=== PATIENT | female | born 1940 | race Caucasian/White ===

== ENCOUNTER 2022-04-30 10:43 | Emergency (ER) | payer MEDICARE, SELFPAY ==
[2022-04-30 10:52] VITALS: BP 198/87; PULSE 80; RESP 16; TEMP 36.6; O2SAT 98; BMI 25.7
--- NOTE | 2022-04-30 10:59 | XRR_ITS ---
PROCEDURE INFORMATION: Exam: XR Chest Exam date and time: 04/30/2022 11:18 AM Age: 82 years old Clinical indication: Cough and dyspnea; Patient HX: Chest pain, passed out; Additional info: Dyspnea/cough TECHNIQUE: Imaging protocol: Radiologic exam of the chest. Views: 1 view. COMPARISON: CT neck w con* [id number] 08/25/2015 9:18 AM FINDINGS: Lungs: Prior pulmonary granulomatous disease. No pulmonary vascular congestion, pulmonary edema or pneumonia. Pleural spaces: No pleural effusion or pneumothorax. Heart/Mediastinum: The cardiac silhouette is not enlarged. The mediastinal contours are normal. Calcified mediastinal and hilar lymph nodes from prior pulmonary granulomatous disease. Bones/joints: No acute osseous abnormality. Soft tissues: Bilateral epicardial fat pads. XR/XR chest 1V portable [id number] IMPRESSION: No acute finding.
--- NOTE | 2022-04-30 11:06 | ECG_ITS ---
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 Measurements Intervals [place] Rate: 69 P: 64 AR: 183 QRS: -3 QRSD: 95 T: 22 QT: 418 QTc: 449 Interpretive Statements SINUS RHYTHM WITH OCCASIONAL SUPRAVENTRICULAR PREMATURE COMPLEXES INCOMPLETE RIGHT BUNDLE BRANCH BLOCK [90+ ms QRS DURATION, TERMINAL R IN V1/V2, 40+ ms S IN I/aVL/V4/V5/V6] MODERATE ST DEPRESSION [0.05+ mV ST DEPRESSION] No previous ECG available for comparison Electronically Signed On 05-01-2022 8:27:13 CDT by Tobi Manrique M.D. [id number]
[2022-04-30 11:18] LABS: Basophils % 0.4 %; Eosinophils # 0.2 10^3/uL (0.0-0.8); Eosinophils % 4.2 %; Hematocrit 35.5 % (37.0-47.0); Hemoglobin 12.6 g/dL (11.5-15.3); Lymphocytes % 44.5 %; Mean Corpuscular HGB Conc 35.5 g/dL (30.0-36.0); Mean Corpuscular Hemoglobin 32.5 pg (28.0-34.0); Mean Corpuscular Volume 91.5 fl (81-99); Monocytes # 0.5 10^3/uL (0.2-0.9); Monocytes % 11.1 %; Neutrophils # 1.77 10^3/uL (1.8-7.7); Neutrophils % 39.6 %; Nucleated Red Blood Cells % 0 %; Platelet Count 202 10^3/cmm (130-400); Red Blood Count 3.88 10^6/uL (4.1-5.3); Red Cell Distribution Width 12.2 % (12.1-15.1); White Blood Count 4.5 10^3/uL (4.0-10.0)
--- NOTE | 2022-04-30 11:22 | CT_ITS ---
WS: [id number] CT HEAD NONCONTRAST HISTORY: syncope/LOC TECHNIQUE: Contiguous axial imaging performed through the brain in 2.5 mm imaging. Bone and soft tiss ue windows. Sagittal and coronal reformats reviewed. All CT scans at [facility] use at least one of these dose optimization techniques: automated exposure control; mA and/or kV adjustment per pa tient size (includes targeted exams where dose is matched to clinical indication); or iterative recon struction. DLP: 1082.72 mGy.cm COMPARISON: None available. No acute intracranial hemorrhage, midline shift or mass effect. Moderate atrophy and small vessel ischemic changes. Small lacunar infarcts in the external capsules. Ventricles: Normal size with no hydrocephalus. No inferior displacement of cerebellar tonsils. Paranasal sinuses: Mucoperiosteal thickening in the ethmoid air cells. No air-fluid levels. Mastoid air cells: Well pneumatized. Calvarium and scalp: Skull is intact with no soft tissue edema or swelling. Moderate calcification through the intracranial carotid arteries. Distal vertebral artery calcificati ons. CT/CT head wo con* [id number] IMPRESSION: 1. No acute cranial hemorrhage or midline shift. 2. 

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
[2022-04-30 11:38] LABS: Troponin(5th) Baseline 11 ng/L (0-10)
[2022-04-30 11:40] LABS: Alanine Aminotransferase 11 U/L (0-33); Albumin Level 4.2 g/dL (3.5-5.2); Alkaline Phosphatase 66 U/L (35-105); Anion Gap 15.4 (5-19); Aspartate Amino Transferase 17 U/L (0-32); Blood Urea Nitrogen 15 mg/dL (8-23); Calcium 9.4 mg/dL (8.5-10.5); Carbon Dioxide 27 mmol/L (22-29); Chloride 95 mmol/L (98-107); Globulin 3.1 g/dL (1.3-4.6); Glucose 105 mg/dL (65-115); Osmolality Calculated 279 mOsm/kg (285-295); Potassium 3.4 mmol/L (3.5-5.1); Sodium 134 mmol/L (136-145); Total Bilirubin 0.3 mg/dL (0.15-1.2); Total Protein 7.3 g/dL (6.6-8.7)
[2022-04-30] MEDS: lisinopril 20 mg Tablet PO (12:00)
[2022-04-30] MEDS: hydroCHLOROthiazide 25 mg Tablet PO (12:00)
[2022-04-30] MEDS: amlodipine 10 mg Tablet PO (12:00)
[2022-04-30 12:06] VITALS: BP 192/111
--- NOTE | 2022-04-30 12:59 | ECG_ITS ---
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 Measurements Intervals [place] Rate: 62 P: 71 [place]: 192 QRS: 17 QRSD: 102 T: 31 QT: 412 QTc: 422 Interpretive Statements SINUS RHYTHM INCOMPLETE RIGHT BUNDLE BRANCH BLOCK [90+ ms QRS DURATION, TERMINAL R IN V1/V2, 40+ ms S IN I/aVL/V4/V5/V6] NONSPECIFIC ST & T-WAVE ABNORMALITY Compared to ECG 04/30/2022 11:06:39 T-wave abnormality now present ST (T wave) deviation no longer present Electronically Signed On 05-01-2022 8:21:22 CDT by Tobi Manrique M.D. [id number]
[2022-04-30 13:39] VITALS: BP 180/100; PULSE 64; RESP 16; O2SAT 93
[2022-04-30 14:00] LABS: Troponin 5 2HR 10.93 ng/L (0-10)
[2022-04-30 14:03] LABS: Troponin 5 2HR Delta -0.07 ABS# (0-10)
[2022-04-30 14:15] LABS: Add Urine Culture? No; Add Urine Microscopic? YES; Bacteria Urine 1+ /hpf; Bilirubin Urine Neg (Negative); Blood Urine 2+ (Negative); Glucose Urine UA Norm (Normal); Ketones Urine Negative (Negative); Leukocyte Esterase Urine Negative (Negative); Nitrate Urine Negative (Negative); Protein Urine Neg (Negative); RBC Urine 0-4 /hpf (0-2); Specific Gravity, Urine 1.005 (1.005-1.030); Squamous Epithelial Cell Urine 0-4 /hpf (0-5); Urine Appearance Clear (CLEAR); Urine Color Yellow (Yellow); Urobilinogen Urine Norm (Negative); WBC Urine 0-4 /hpf (0-5); pH Urine 7 (5-7)
--- NOTE | 2022-05-01 11:15 | DCPLANNER ---
Addendum entered by Amelia Hugo 08/09/22 14:46: Patient had a follow up appointment scheduled for an outpatient echo - patient did attend appointment Addendum entered by Amelia Hugo 07/30/22 13:58: Patient has an echo scheduled for Friday, August 05, 2022 at 11:00. Centralized scheduling will call patient with appointment information. Addendum entered by Amelia Hugo 05/09/22 11:46: Patient had a follow up appointment scheduled for 05.09.22 with [facility] - patient did attend appointment. Addendum entered by Amelia Hugo 05/01/22 11:20: internet cafe manager also sent patients information to the front office staff at [facility]. Patients information will be printed and reviewed, clinic will call patient with appointment information. Original Note: internet cafe manager had message to schedule an outpatient echocardiogram and a 48 hour halter monitor for patient. internet cafe manager spoke with patients , who stated that patient wanted to have the tests ordered and that patients primary care physician is Ramila Ahumada [place] [facility] internet cafe manager faxed signed order to centralized scheduling for the echocardiogram, centralized scheduling will call patient with appointment information. internet cafe manager faxed signed order to [facility] for the halter monitor, [facility] will call patient with appointment information. internet cafe manager also faxed notification to patients primary care physician that the ER physician ordered some outpatient testing for patient.
== END 2022-04-30 14:38 | disposition home or self-care (01) ==
PROVIDERS: Emergency Provider Family Medicine; PCP Physician Assistant
DX: R55 Syncope and collapse (principal); I10 Essential (primary) hypertension; Z79.02 Long term (current) use of antithrombotics/antiplatelets; Z79.82 Long term (current) use of aspirin
CPT/HCPCS: 36415; 70450; 71045; 80053; 81001; 84484; 85025; 93005; 99285

== ENCOUNTER → 2022-05-09 10:46 | Outpatient (BNVA) | payer MEDICARE, SELFPAY | PROVIDERS: PCP Physician Assistant; Visit Provider Internal Medicine Cardiovascular Disease | DX: R55 Syncope and collapse (principal) | CPT/HCPCS: 93225 ==

== ENCOUNTER 2022-08-05 10:51 | Outpatient (CLI) | payer MEDICARE, SELFPAY ==
--- NOTE | 2022-08-05 11:14 | USCV_ITS ---
Geeta Hudson Age: 82 Gender: F : 1940 Exam Date: 08/05/2022 11:32 Ordering Phys: Graham Cruz DO Technologist: Steven Mcbride Exam Location: [facility] [place] Indication: syncope BP: 120 / 60 HR: 60 Rhythm: Sinus Technical Quality: Adequate MEASUREMENTS (Male / Female) Normal Values 2D ECHO LV Diastolic Diameter PLAX 3.6 cm 4.2 - 5.9 / 3.9 - 5.3 cm LV Systolic Diameter PLAX 2.0 cm IVS Diastolic Thickness 0.7 cm 0.6 - 1.0 / 0.6 - 0.9 cm IVS Systolic Thickness 0.9 cm LVPW Diastolic Thickness 1.2 cm 0.6 - 1.0 / 0.6 - 0.9 cm LVPW Systolic Thickness 1.7 cm LVOT Diameter 2.0 cm LV Ejection Fraction 2D Teich 76.0 % LV Ejection Fraction MOD 2C 76.8 % LV Ejection Fraction 2C AL 76.2 % LA Diameter 3.2 cm LA Width 3.4 cm LA Height 4.3 cm RA Width 3.2 cm RA Height 5.3 cm Aorta at Sinotubular Diameter 2.1 cm IVC Diameter 1.9 cm M-MODE Aortic Annulus Diameter 2.2 cm LA Ao Ratio MM 1.5 MV E Point Septal Separation 0.4 cm DOPPLER AV Peak Velocity 146.8 cm/s LVOT Peak Velocity 101.0 cm/s AV Area Cont Eq vti 2.2 cm squared AV Area Cont Eq pk 2.2 cm squared MV Peak Velocity 86.0 cm/s MV Area PHT 4.9 cm squared Mitral E to A Ratio 0.8 MV E' Velocity 35.0 cm/s Mitral E to MV E' Ratio 6.4 Mitral E to LV E' Lateral Ratio 6.7 Mitral E to LV E' Septal Ratio 6.1 TR Peak Velocity 241.8 cm/s TR Peak Gradient 23.4 mmHg TR Mean Velocity 188.1 cm/s TR Mean Gradient 14.8 mmHg TR Velocity Time Integral 76.4 cm Right Atrial Pressure 3.0 mmHg Pulmonary Artery Systolic Pressu 26.4 mmHg PV Peak Velocity 77.0 cm/s RV Acceleration Time 0.1 s RV Ejection Time 0.3 s RV AcT/ET 0.3 FINDINGS Left Ventricle Left ventricle is normal in size. LV systolic function is normal with EF of 55 to 60%. No regional wall motion abnormalities are seen. Grade 1 diastolic dysfunction Right Ventricle Normal in size and function Right Atrium Normal in size Left Atrium Normal in size Mitral Valve Structurally normal mitral valve. Trace mitral regurgitation Aortic Valve Aortic valve is thickened. No significant stenosis. Trace tricuspid regurgitation seen Tricuspid Valve Mild tricuspid regurgitation. RVSP is normal Pulmonic Valve Not well visualized. Trace pulmonic regurgitation Pericardium Normal Aorta Normal in size IVC Appears to be normal CONCLUSIONS LV systolic function is normal with EF of 55-60% Grade 1 diastolic dysfunction Trace mitral regurgitation Mild tricuspid regurgitation. Trace pulmonic regurgitation Compared to prior echocardiogram from 2016, no significant changes are seen Tobi Manrique MD (Electronically Signed) Final Date: 05 August 2022 17:43 S
== END 2022-08-05 10:52 | disposition home or self-care (01) ==
PROVIDERS: PCP Physician Assistant; Visit Provider Family Medicine
DX: R55 Syncope and collapse (principal)
CPT/HCPCS: 93306

== ENCOUNTER 2022-10-25 14:45 | Outpatient (CLI) | payer MEDICARE, SELFPAY ==
--- NOTE | 2022-10-25 14:52 | MR_ITS ---
WS: [id number] MRI LUMBAR SPINE NONCONTRAST TECHNIQUE: Sagittal T1, T2 and STIR imaging. Axial T1 and T2 imaging. CLINICAL INFORMATION: NEUROGENIC CLAUDICATION COMPARISON: None. FINDINGS: Mild lumbar curve. No acute compression. Grade 1 anterolisthesis L4 on L5 measuring 9 mm. L1-L2: No significant disc bulging. Moderate facet arthropathy. Spinal canal and foramen are patent. L2-L3: Mild annular bulging. Moderate facet arthropathy. Mild narrowing subarticular recess bilateral ly. Mild bilateral foraminal narrowing. L3-L4: Mild annular bulging. Mild to moderate central canal stenosis. Impingement traversing L4 nerve roots bilaterally. Moderate facet arthropathy. Small bilateral foraminal protrusions with mild to mo derate bilateral foraminal narrowing. L4-L5: Grade 1 anterolisthesis. Disc bulging combination with facet arthropathy and ligamentum flavum hypertrophy results in severe central canal stenosis. Impingement traversing L5 nerve roots bilatera lly. Small facet effusions. Moderate RIGHT and mild LEFT foraminal narrowing. L5-S1: Mild annular bulging with slight contact of the S1 nerve roots LEFT greater than RIGHT. Modera te LEFT foraminal narrowing impinges the exiting LEFT L5 nerve root. Visualized pelvic bony structures: Normal. Paravertebral soft tissues: Normal. Partially visualized adrenal glands are normal. Small RIGHT renal cyst. MR/MR lumbar spine wo con* [id number] IMPRESSION: 1. Grade 1 anterolisthesis L4 on L5 with a central canal stenosis. Impingement traversing L5 nerve roots. Recommend spine surgery consultation. 2. Mild to moderate central canal stenosis L3-L4 mild central canal stenosis L 2-L3. 3. Shallow central protrusion L5-S1 with slight impingement traversing LEFT gr eater than RIGHT S1 nerve roots. 4. Moderate LEFT L5-S1 foraminal narrowing. 5. Small bilateral foraminal protrusions L3-L4 with mild to moderate bilateral foraminal narrowing. 6. Moderate RIGHT L4-L5 foraminal narrowing.
== END 2022-10-25 14:46 | disposition home or self-care (01) ==
LOC: RAD 14:47
PROVIDERS: PCP Physician Assistant; Visit Provider Physician Assistant
DX: M48.062 Spinal stenosis, lumbar region with neurogenic claudication (principal); M47.816 Spondylosis without myelopathy or radiculopathy, lumbar region
CPT/HCPCS: 72148

== ENCOUNTER 2023-03-22 12:18 | Observation (INO) | payer MEDICARE, SELFPAY ==
[2023-03-22 12:20] VITALS: BP 101/56; PULSE 62; RESP 16; TEMP 36.8; O2SAT 93
--- NOTE | 2023-03-22 12:54 | XRR_ITS ---
PROCEDURE INFORMATION: Exam: XR Chest Exam date and time: 03/22/2023 12:58 PM Age: 82 years old Clinical indication: Pain; Dyspnea/cough TECHNIQUE: Imaging protocol: Radiologic exam of the chest. Views: 1 view. COMPARISON: CR XR chest 1V portable [id number] 04/30/2022 11:18 AM FINDINGS: Lungs: Prior pulmonary granulomatous disease. No pulmonary vascular congestion, pulmonary edema or pneumonia. Pleural spaces: No pleural effusion or pneumothorax. Heart/Mediastinum: The cardiac silhouette is not enlarged. The mediastinal contours are normal. Calcified mediastinal and hilar lymph nodes from prior pulmonary granulomatous disease. Bones/joints: No acute osseous abnormality. Soft tissues: Bilateral epicardial fat pads. XR/XR chest 1V portable [id number] IMPRESSION: No acute finding.
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
[2023-03-22 13:03] LABS: Basophils # 0.1 10^3/uL (0.0-0.1); Basophils % 0.5 %; Eosinophils # 0.1 10^3/uL (0.0-0.8); Eosinophils % 0.7 %; Hematocrit 36.8 % (36-47); Lymphocytes # 1.7 10^3/uL (0.8-4.8); Lymphocytes % 14.2 %; Mean Corpuscular HGB Conc 34.2 g/dL (30-55); Mean Corpuscular Volume 90.6 fl (85-98); Mean Platelet Volume 9.4 fL (7.4-10.4); Monocytes # 1.4 10^3/uL (0.2-0.9); Monocytes % 12.1 %; Neutrophils # 8.46 10^3/uL (1.8-7.7); Neutrophils % 72.1 %; Nucleated Red Blood Cells % 0 %; Platelet Count 317 10^3/cmm (157-399); Red Blood Count 4.06 10^6/uL (3.85-5.65); Red Cell Distribution Width 12.3 % (12.1-15.1); White Blood Count 11.73 10^3/uL (3.29-11.43)
[2023-03-22 13:16] LABS: Alanine Aminotransferase 11 U/L (0-33); Albumin Level 4.3 g/dL (3.5-5.2); Alkaline Phosphatase 71 U/L (35-105); Anion Gap 15.4 (5-19); Aspartate Amino Transferase 17 U/L (0-32); Blood Urea Nitrogen 23 mg/dL (8-23); Calcium 9.3 mg/dL (8.5-10.5); Carbon Dioxide 26 mmol/L (22-29); Chloride 97 mmol/L (98-107); Glucose 144 mg/dL (65-115); Osmolality Calculated 286 mOsm/kg (285-295); Potassium 3.4 mmol/L (3.5-5.1); Sodium 135 mmol/L (136-145); Total Bilirubin 0.5 mg/dL (0.15-1.2); Total Protein 7.3 g/dL (6.6-8.7)
[2023-03-22 13:17] LABS: Troponin(5th) Baseline 17 ng/L (0-10)
--- NOTE | 2023-03-22 13:21 | ECG_ITS ---
[facility] Test Date: 2023-03-22 Pat Name: Geeta Hudson Department: Room: Gender: Female Manager Global: : 1940 Requested By: Graham Murdock Order Number: [id number] Reading MD: Solomon Guerrero Measurements Intervals [place] Rate: 63 P: 67 HI: 210 QRS: 11 QRSD: 114 T: 50 QT: 442 QTc: 455 Interpretive Statements SINUS RHYTHM WITH SINUS ARRHYTHMIA WITH FIRST DEGREE AV BLOCK INCOMPLETE RIGHT BUNDLE BRANCH BLOCK [90+ ms QRS DURATION, TERMINAL R IN V1/V2, 40+ ms S IN I/aVL/V4/V5/V6] NONSPECIFIC ST & T-WAVE ABNORMALITY Compared to ECG 04/30/2022 13:09:54 First degree AV block now present T-wave abnormality still present Electronically Signed On 03-22-2023 15:54:42 CDT by Solomon Guerrero [id number]
[2023-03-22 13:36] VITALS: BP 129/61; RESP 18; O2SAT 95
--- NOTE | 2023-03-22 13:39 | CTR_ITS ---
PROCEDURE INFORMATION: Exam: CT Head Without Contrast Exam date and time: 03/22/2023 2:21 PM Age: 82 years old Clinical indication: Injury or trauma; Fall; Work related; Blunt trauma (contusions or hematomas) TECHNIQUE: Imaging protocol: Computed tomography of the head without contrast. Radiation optimization: All CT scans at this facility use at least one of these dose optimization techniques: automated exposure control; mA and/or kV adjustment per patient size (includes targeted exams where dose is matched to clinical indication); or iterative reconstruction. REPORTING DATA: Count of CT and Cardiac NM exams in prior 12 months: This patient has received [address] and 0 known cardiac nuclear medicine studies in the 12 months prior to the current study. COMPARISON: CT head wo con* [id number] 04/30/2022 11:49 AM RADIATION DOSE METRICS: Total DLP (mGy-cm): 1118.98 FINDINGS: Brain: No acute appearing brain parenchymal abnormality. No intracranial hemorrhage. No extraaxial fluid collections. There is diffuse cerebral atrophy. There are white matter low attenuation changes potentially related to chronic small vessel disease. Cerebral ventricles: No hydrocephalus when allowing for the atrophy. Paranasal sinuses: Mild multifocal paranasal sinus mucoperiosteal thickening. Mastoid air cells: The mastoid air cells are aerated. Bones/joints: No calvarial fracture. Soft tissues: No acute soft tissue abnormality. CT/CT head wo con* [id number] IMPRESSION: No intracranial injury or calvarial fracture.
--- NOTE | 2023-03-22 13:39 | CTR_ITS ---
PROCEDURE INFORMATION: Exam: CT Cervical Spine Without Contrast Exam date and time: 03/22/2023 2:21 PM Age: 82 years old Clinical indication: Injury or trauma; Fall; Blunt trauma TECHNIQUE: Imaging protocol: Computed tomography of the cervical spine without contrast. Radiation optimization: All CT scans at this facility use at least one of these dose optimization techniques: automated exposure control; mA and/or kV adjustment per patient size (includes targeted exams where dose is matched to clinical indication); or iterative reconstruction. REPORTING DATA: Count of CT and Cardiac NM exams in prior 12 months: This patient has received [address] and 0 known cardiac nuclear medicine studies in the 12 months prior to the current study. COMPARISON: CT head wo con* [id number] 04/30/2022 11:49 AM RADIATION DOSE METRICS: Total DLP (mGy-cm): 209.3 FINDINGS: Bones/joints: There is straightening of the cervical spine. This can be due to patient position or muscle spasm. The vertebral bodies maintain height. There is ankylosis of the C3-C4 facet joint on the right. Multilevel facet arthropathy present on the left. The craniocervical junction is normal. The atlantodens interval is not widened. Multilevel disc and uncovertebral joint degeneration in the mid cervical spine. Minimal grade 1 degenerative anterolisthesis at C5-C6. Multilevel bilateral degenerative foraminal stenosis of varying degrees, but generally worse on the left. No acute fracture. Lungs: The lung apices are normal. Soft tissues: No acute soft tissue abnormality. CT/CT cervical spin wo con* [id number] IMPRESSION: 1. No acute osseous abnormality. 2. Multilevel degenerative changes.
[2023-03-22 14:14] LABS: Glucose Urine UA Norm (Normal); Ketones Urine Negative (Negative); Protein Urine Trace (Negative); Urine Appearance Cloudy (CLEAR); Urine Color Yellow (Yellow); pH Urine 5 (5-7)
[2023-03-22 14:15] LABS: Add Urine Culture? Yes; Add Urine Microscopic? YES; Bacteria Urine 3+ /hpf; Bilirubin Urine Neg (Negative); Blood Urine 3+ (Negative); Leukocyte Esterase Urine 2+ (Negative); Nitrate Urine Negative (Negative); Squamous Epithelial Cell Urine RARE /hpf (0-5); Urobilinogen Urine Norm (Negative); WBC Urine TOO NUMEROUS TO CNT /hpf (0-5)
--- NOTE | 2023-03-22 14:24 | USCV_ITS ---
Geeta Hudson Age: 82 Gender: F : 1940 Exam Date: 03/22/2023 15:43 Ordering Phys: Salinas Rasheed MD Technologist: Steven Mcbride Exam Location: [facility] [place] Indication: sob BP: 129 / 61 HR: 74 Rhythm: Sinus Technical Quality: Adequate MEASUREMENTS (Male / Female) Normal Values 2D ECHO LVOT Diameter 2.0 cm LV Ejection Fraction MOD 2C 66.4 % LV Ejection Fraction 2C AL 66.3 % LA Diameter 3.4 cm LA Width 2.7 cm LA Height 5.1 cm RA Width 3.0 cm RA Height 5.2 cm Aorta at Sinotubular Diameter 1.8 cm IVC Diameter 1.4 cm M-MODE Aortic Annulus Diameter 2.4 cm LA Ao Ratio MM 1.6 MV E Point Septal Separation 0.6 cm DOPPLER AV Peak Velocity 149.7 cm/s LVOT Peak Velocity 127.0 cm/s AV Area Cont Eq vti 2.3 cm squared AV Area Cont Eq pk 2.7 cm squared MV Peak Velocity 89.0 cm/s MV Area PHT 4.6 cm squared Mitral E to A Ratio 0.9 MV E' Velocity 34.0 cm/s Mitral E to MV E' Ratio 7.6 Mitral E to LV E' Lateral Ratio 7.8 Mitral E to LV E' Septal Ratio 7.5 TR Peak Velocity 213.1 cm/s TR Peak Gradient 18.2 mmHg TR Mean Velocity 171.8 cm/s TR Mean Gradient 13.0 mmHg TR Velocity Time Integral 53.3 cm Right Atrial Pressure 3.0 mmHg Pulmonary Artery Systolic Pressu 21.2 mmHg PV Peak Velocity 67.3 cm/s RV Acceleration Time 0.1 s RV Ejection Time 0.3 s RV AcT/ET 0.4 FINDINGS Left Ventricle Normal left ventricular size and systolic function, EF 65 %. Right Ventricle Normal right ventricular size and systolic function. Right Atrium Normal right atrial size. Left Atrium Mildly increased left atrial size. Mitral Valve Trace mitral valve regurgitation. Aortic Valve Structurally normal trileaflet aortic valve. Tricuspid Valve Trace tricuspid valve regurgitation. Pulmonic Valve No pulmonary valve regurgitation. Pericardium No pericardial effusion. Aorta Normal aorta. IVC Normal inferior vena cava. CONCLUSIONS Normal left ventricular size and systolic function, EF 65 %. Solomon Guerrero MD (Electronically Signed) Final Date: 23 March 2023 12:42 S
--- NOTE | 2023-03-22 14:24 | USR_ITS ---
PROCEDURE INFORMATION: Exam: US Duplex Bilateral Extracranial Arteries; Complete; Carotid Arteries Exam date and time: 03/22/2023 3:16 PM Age: 82 years old Clinical indication: Altered mental status/memory loss; Additional info: AMS TECHNIQUE: Imaging protocol: Real-time duplex ultrasound scan of the bilateral extracranial arteries combining correa scale, color Doppler and spectral waveform analysis with image documentation. Complete exam. Exam focused on the carotid arteries. COMPARISON: CT cervical spin wo con* [id number] 03/22/2023 2:21 PM FINDINGS: Right common carotid artery: Unremarkable. No occlusion or stenosis. Waveforms are normal. Right internal carotid artery: Unremarkable. No occlusion or stenosis. Waveforms are normal. Proximal 36.7 cm/s, mid 72 cm/s, distal 61 cm/s Right ICA/CCA ratio: 0.81. Right external carotid artery: No stenosis in the origin. Right vertebral artery: Unremarkable. Antegrade flow. Left common carotid artery: Unremarkable. No occlusion or stenosis. Waveforms are normal. Left internal carotid artery: Unremarkable. No occlusion or stenosis. Waveforms are normal. Proximal 63 cm/s, mid 68 cm/s, distal 75 cm/s. Left ICA/CCA ratio: 0.88 Left external carotid artery: No stenosis in the origin. Left vertebral artery: Unremarkable. Antegrade flow. US/CV carotid duplex BI* [id number] IMPRESSION: No carotid arterial stenosis. REFERENCES: SRU CRITERIA. The degree of internal carotid artery stenosis is based on criteria defined by the Society of Radiologists in Ultrasound (SRU). Normal is no stenosis. Mild is less than 50% stenosis. Moderate is 50-69% stenosis. Severe is greater than 69% stenosis to near occlusion. Near occlusion is a markedly narrowed lumen. Total occlusion is no detectable patent lumen.
--- NOTE | 2023-03-22 15:14 | CTR_ITS ---
PROCEDURE INFORMATION: Exam: CTA Chest With Contrast Exam date and time: 03/22/2023 4:20 PM Age: 82 years old Clinical indication: Other: Syncope TECHNIQUE: Imaging protocol: Computed tomographic angiography of the chest with contrast. Exam focused on the arteries. 3D rendering (Not supervised by radiologist): MIP and/or 3D reconstructed images were created by the technologist. Radiation optimization: All CT scans at this facility use at least one of these dose optimization techniques: automated exposure control; mA and/or kV adjustment per patient size (includes targeted exams where dose is matched to clinical indication); or iterative reconstruction. Contrast material: OMNI 350; Contrast volume: 67 ml; Contrast route: INTRAVENOUS (IV); REPORTING DATA: Count of CT and Cardiac NM exams in prior 12 months: This patient has received [address] and 0 known cardiac nuclear medicine studies in the 12 months prior to the current study. COMPARISON: CR (CHEST, ) 03/22/2023 12:58 PM RADIATION DOSE METRICS: Total DLP (mGy-cm): 232.29 FINDINGS: Pulmonary arteries: Normal. No pulmonary emboli. Aorta: Unremarkable. No aortic aneurysm. No aortic dissection. Lungs: A few scattered calcified granulomas are present in both lungs. No consolidation. No masses. Pleural spaces: Unremarkable. No pneumothorax. No pleural effusion. Heart: Heavy coronary artery calcifications. Negative for right heart strain. No cardiomegaly. No pericardial effusion. Lymph nodes: Unremarkable. No enlarged lymph nodes. Bones/joints: Unremarkable. No acute fracture. Soft tissues: Unremarkable. CT/CT angio chest PE protcl [id number] IMPRESSION: 1. Negative for pulmonary embolism. 2. Negative for right heart strain. 3. Heavy coronary artery calcifications 4. A few scattered calcified granulomas in both lungs
--- NOTE | 2023-03-22 15:16 | P.HP_ITS ---
Providers/Chief Complaint Primary Care Provider: Ramila Ahumada Chief Complaint: SYNCOPE History of Present Illness Geeta Hudson is a 82 year old female Review of Systems Const: Denies: fever(s) or chills Eyes: Denies: change in vision or blurry vision ENMT: Denies: throat pain Card: Reports: chest pain, lightheadedness and syncope; Denies: palpitations or dyspnea on exertion Resp: Denies: dyspnea or non-productive cough GI: Denies: abdominal pain, nausea or vomiting : Denies: flank pain or difficulty voiding Musc: Reports: back pain; Denies: neck pain Skin/Breast: Denies: rash or pruritus Neuro: Denies: headache(s), numbness in extremities or weakness in extremities Psych: Denies: anxiety Endo: Denies: polyuria Fadi/Lymph: Denies: easy bruising or easy bleeding Medications/Allergies Home Medications Medication Instructions Recorded Confirmed Last Taken Type amlodipine 10 mg tablet 10 mg PO DAILY #30 tabs 04/30/22 03/22/23 03/22/23 Rx clopidogrel 75 mg tablet 75 mg PO DAILY 04/30/22 03/22/23 03/22/23 History labetalol 200 mg tablet 200 mg PO BID 04/30/22 03/22/23 03/22/23 History quinapril 20 1 tab PO DAILY 04/30/22 03/22/23 03/22/23 History mg-hydrochlorothiazide 12.5 mg tablet acetaminophen 325 mg capsule 650 mg PO QID PRN Pain 03/22/23 03/22/23 03/22/23 History (Tylenol) loratadine 10 mg capsule 10 mg PO DAILY PRN Allergy Symptoms 03/22/23 03/22/23 03/21/23 History vitamin B12 0.5 mg-folic acid 1 mg 1 tab PO DAILY 03/22/23 03/22/23 03/22/23 History tablet Allergies Allergy/AdvReac Type Severity Reaction Status Date / Time No Known Allergies Allergy Verified 03/22/23 12:27 PFSH Acute PFSH: Medical History (Updated 03/22/23 @ 15:24 by Salinas Rasheed MD) History of CVA (cerebrovascular accident) Hypertension Surgical History History of back surgery Family History (Updated 03/22/23 @ 15:19 by Salinas Rasheed MD) Father Stroke Social History (Updated 03/22/23 @ 15:19 by Salinas Rasheed MD) Smoking and tobacco status: never smoked Alcohol intake: never Substance/Drug Use: never Vitals/I&O/Wt Last Vital Signs Temp 98.2 F 03/22/23 12:20 Pulse 62 03/22/23 12:20 Resp 18 03/22/23 13:36 BP 129/61 03/22/23 13:36 Pulse Ox 95 03/22/23 13:36 O2 Del Method Room Air 03/22/23 13:36 Weight last 48 hrs Weight 63.503 kg Physical Exam Const: COMMON NORMALS: no acute distress and patient oriented x3 GENERAL APPEARANCE: cooperative HENMT: COMMON NORMALS: normocephalic and Normal external nose present HEAD & SCALP: normocephalic FACE & SINUS: normal facial exam NOSE: Normal external nose present Eye: COMMON NORMALS: Equal, round and reactive pupils present, EOMs intact bilaterally, conjunctivae normal and no scleral icterus CONJUNCTIVA: Yes conjunctivae normal PUPIL: Yes Equal, round and reactive pupils present Neck/C-Spine: COMMON NORMALS: full ROM, no lymphadenopathy, no JVD, Thyroid normal and No carotid bruits THYROID: Thyroid normal Lymph: LYMPHATIC: no lymphadenopathy noted Chest: COMMONS NORMALS: normal inspection of the chest Resp: COMMON NORMALS: normal respiratory effort, No retractions, No use of ac cessory muscles and clear to auscultation bilaterally AUSCULTATION: clear to auscultation bilaterally Cardio: COMMON NORMALS: regular rate, regular rhythm, S1 normal heart sound present, S2 normal heart sound present, No murmurs present (Cardio) and Peripheral pulses 2+ throughout RATE: regular rate RHYTHM: regular rhythm HEART SOUNDS: S1 normal heart sound present and S2 normal heart sound present PERIPHERAL PULSES: Peripheral pulses 2+ throughout GI: COMMON NORMALS: Normal to inspection, nondistended, normoactive bowel sounds present, Soft to palpation and non-tender : BLADDER/KIDNEY EXAM: Yes no CVA tenderness Back/Pelvis: COMMON NORMALS: no CVA tenderness Extremity: COMMON NORMALS: normal to inspection and full ROM Neuro: COMMON NORMALS: patient oriented x3, CN's II-XII intact bilaterally, moves all extremities, no focal motor deficits and no sensory deficits noted MENINGEAL SIGNS: Yes no meningeal signs Psych: COMMON NORMALS: mental status grossly normal, Normal thought process present, cooperative and speech normal APPEARANCE: Yes well kempt Skin: COMMON NORMALS: turgor normal and no jaundice GENERAL SKIN EXAM: turgor normal Data 03/22/23 11:57 03/22/23 11:57 Micro: Microbiology 03/22/23 14:55 Blood Culture - Preliminary Blood SPECIMEN COLLECTED 03/22/23 14:55 Blood Culture - Preliminary Blood SPECIMEN COLLECTED A&P Assessment and plan (1) Syncope: (2) Atypical chest pain: (3) RAOUL (acute kidney injury): (4) Cystitis: Plan Syncope -neuro check, aspiration precaution, nih strokescale -orthostatic vitals -cardiac echo -carotid artery ultrasound -ct head -she has had back surgery, now with atpical chest pain, will order ctangio of chest Atypical chest pain -serial ekg, serial troponin, telemetry monitoring -coutinue plavix UTI -countinue rocephin HTN -hold labetalol RAOUL -IVF normal saline at 100cc/hr Attestations Medical Necessity Statement*: patient requires hospitalization for syncope and chest pain, outpatient with observation Diagnoses Syncope R55 Atypical chest pain R07.89 RAOUL (acute kidney injury) N17.9 Cystitis N30.90
[2023-03-22 15:22] LABS: Lactic Sepsis W/Reflex 1.2 mmol/L (0.5-2.2)
[2023-03-22 15:27] LABS: Chol HDL Ratio 4.34 mg/dL (0.0-4.40); Cholesterol 252 mg/dL (0-200); HDL Cholesterol 58 mg/dL (60-100); LDL Cholesterol Calculated 168 mg/dL (50-129); Thyroid Stimulating Hormone 2.27 uIU/mL (0.27-4.20); Triglycerides 130 mg/dL (0-150)
[2023-03-22 15:28] LABS: NT Pro B Type Natriuretic Pept 699 pg/mL (0-450); Procalcitonin 0.22 ng/mL (0-0.5)
[2023-03-22 15:29] LABS: Estmated Average Glucose 117; Hemoglobin A1C 5.7 % (4.0-6.0)
[2023-03-22] MEDS: cefTRIAXone 1,000 MG in sodium chloride 0.9% (plus) 50 ML 100 MG IV (15:37)
[2023-03-22 15:39] LABS: Magnesium 1.8 mg/dL (1.7-2.3); Phosphorus 3.8 mg/dL (2.5-4.5)
[2023-03-22 15:49] VITALS: BP 130/66; O2SAT 94
[2023-03-22] MEDS: iohexol 350 mg/mL 500 mL Btl (per mL) IV (16:27)
[2023-03-22 17:17] LABS: Erythrocyte Sedimentation Rate 13 mm/hr (0-15)
[2023-03-22 17:39] LABS: C Reactive Protein 74.1 mg/L (0.0-4.9)
[2023-03-22] MEDS: sodium chloride 0.9% 1,000 ML 100 ML IV (18:05)
[2023-03-22] MEDS: enoxaparin 40 mg/0.4 mL Syringe SUBCUT (18:05)
[2023-03-22] MEDS: pantoprazole 40 mg SDV IVP (18:30)
--- NOTE | 2023-03-22 18:54 | ECG_ITS ---
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 Measurements Intervals [place] Rate: 87 P: -19 AK: 196 QRS: 65 QRSD: 91 T: 0 QT: 372 QTc: 448 Interpretive Statements SINUS RHYTHM INCOMPLETE RIGHT BUNDLE BRANCH BLOCK [90+ ms QRS DURATION, TERMINAL R IN V1/V2, 40+ ms S IN I/aVL/V4/V5/V6] MODERATE ST DEPRESSION [0.05+ mV ST DEPRESSION] Compared to ECG 03/22/2023 13:21:29 ST (T wave) deviation now present Sinus arrhythmia no longer present First degree AV block no longer present T-wave abnormality no longer present Electronically Signed On 03-23-2023 9:31:06 CDT by Tobi Manrique M.D. [id number]
[2023-03-22 19:10] LABS: Troponin 5 6HR 12.54 ng/L (0-10); Troponin 5 6HR Delta -4.46 ng/L (0-12)
[2023-03-22 20:46] VITALS: BP 151/78; PULSE 102; RESP 20; TEMP 38.2; O2SAT 90
[2023-03-22 23:36] VITALS: PULSE 99
[2023-03-23] VITALS (10 sets, daily range): BP systolic 119–143; BP diastolic 63–79; PULSE 71–97; RESP 16–17; TEMP 36.6–38.2; O2SAT 91–94
[2023-03-23] MEDS: sodium chloride 0.9% 1,000 ML 100 ML IV ×3 (03:35→22:30)
--- NOTE | 2023-03-23 08:53 | USR_ITS ---
PROCEDURE INFORMATION: Exam: US Retroperitoneal; Complete; Kidneys and Bladder Exam date and time: 03/23/2023 3:19 PM Age: 82 years old Clinical indication: Condition or disease; Kidney or ureter condition; Other: Irvin TECHNIQUE: Imaging protocol: Real-time ultrasound of the retroperitoneum with image documentation. Complete exam focused on the kidneys and bladder. COMPARISON: CT angio chest PE protcl [id number] 03/22/2023 4:20 PM FINDINGS: Right kidney: Normal. No stones. No hydronephrosis. Left kidney: Normal. No stones. No hydronephrosis. Urinary bladder: Small amount of layering nonspecific debris in the urinary bladder. US/US renal BI* [id number] IMPRESSION: 1. Negative for hydronephrosis or renal calculus. 2. Small amount of layering nonspecific debris in the urinary bladder.
[2023-03-23] MEDS: hydroCHLOROthiazide 25 mg Tablet 12.5 MG PO (09:45)
[2023-03-23] MEDS: amlodipine 10 mg Tablet PO (09:46)
[2023-03-23] MEDS: lisinopril 20 mg Tablet PO (09:46)
[2023-03-23] MEDS: clopidogrel 75 mg Tablet PO (09:46)
--- NOTE | 2023-03-23 09:58 | PC.NURSE ---
Per Dr. Rasheed at 09:58 due to the patient's fever of 100.8 he would like to start Rochephin for the UTI now instead of at 14:30.
[2023-03-23 10:28] LABS: Basophils # 0.1 10^3/uL (0.0-0.1); Basophils % 0.3 %; Eosinophils % 0.1 %; Hematocrit 34.5 % (36-47); Lymphocytes # 2.1 10^3/uL (0.8-4.8); Lymphocytes % 13.3 %; Mean Corpuscular HGB Conc 34.8 g/dL (30-55); Mean Corpuscular Hemoglobin 31.3 pg (27-33); Mean Corpuscular Volume 89.8 fl (85-98); Mean Platelet Volume 9.5 fL (7.4-10.4); Monocytes # 2.4 10^3/uL (0.2-0.9); Monocytes % 15.2 %; Neutrophils # 11.34 10^3/uL (1.8-7.7); Neutrophils % 70.5 %; Nucleated Red Blood Cells % 0 %; Platelet Count 290 10^3/cmm (157-399); Red Blood Count 3.84 10^6/uL (3.85-5.65); Red Cell Distribution Width 12.4 % (12.1-15.1); White Blood Count 16.08 10^3/uL (3.29-11.43)
[2023-03-23] MEDS: cefTRIAXone 1,000 MG in sodium chloride 0.9% (plus) 50 ML 100 MG IV (10:28)
[2023-03-23 10:54] LABS: Alanine Aminotransferase 9 U/L (0-33); Albumin Level 4.1 g/dL (3.5-5.2); Alkaline Phosphatase 65 U/L (35-105); Anion Gap 14.2 (5-19); Aspartate Amino Transferase 14 U/L (0-32); Blood Urea Nitrogen 17 mg/dL (8-23); Calcium 8.7 mg/dL (8.5-10.5); Carbon Dioxide 27 mmol/L (22-29); Chloride 100 mmol/L (98-107); Creatinine Clr Calc Pharmacy 42.4993; Globulin 2.9 g/dL (1.3-4.6); Glucose 122 mg/dL (65-115); Osmolality Calculated 289 mOsm/kg (285-295); Potassium 3.2 mmol/L (3.5-5.1); Sodium 138 mmol/L (136-145); Total Bilirubin 0.5 mg/dL (0.15-1.2)
[2023-03-23] MEDS: potassium chloride ER 20 mEq Tablet 40 MEQ PO (11:34)
[2023-03-23 12:45] LABS: Adenovirus Not Detected (NOT DETECT); Chlamydia Pneumoniae Not Detected (NOT DETECT); Coronavirus 229E,HKU1,NL63,OC4 Not Detected (NOT DETECT); Human Metapneumovirus Not Detected (NOT DETECT); Human Rhinovirus/Enterovirus Not Detected (NOT DETECT); Influenza A Not Detected (NOT DETECT); Influenza A H1 Not Detected (NOT DETECT); Influenza A H1-2009 Not Detected (NOT DETECT); Influenza A H3 Not Detected (NOT DETECT); Influenza B Not Detected (NOT DETECT); Mycoplasma Pneumoniae Not Detected (NOT DETECT); Parainfluenza Virus Type 1 Not Detected (NOT DETECT); Parainfluenza Virus Type 2 Not Detected (NOT DETECT); Parainfluenza Virus Type 3 Not Detected (NOT DETECT); Parainfluenza Virus Type 4 Not Detected (NOT DETECT); Respiratory Syncytial Virus A Not Detected (NOT DETECT); Respiratory Syncytial Virus B Not Detected (NOT DETECT); SARS-COV-2 Not Detected (NOT DETECT)
--- NOTE | 2023-03-23 12:54 | P.PN_ITS ---
Subjective Subjective: Patient was seen this morning, she had low-grade fevers throughout the night, no nausea, no vomiting, she is sitting up in bed, no lightheadedness episodes, no flank pain, no dysuria, no cough Vitals/I&O/Wt Last Vital Signs Temp 97.8 F 03/23/23 11:48 Pulse 71 03/23/23 11:48 Resp 17 03/23/23 11:48 BP 128/73 03/23/23 11:48 Pulse Ox 94 03/23/23 11:48 O2 Del Method Room Air 03/23/23 03:58 03/22/23 03/23/23 03/23/23 22:59 06:59 14:59 Intake Total 50 / 50 950 / 1000 1213.333 / 1213.333 Balance 50 / 50 950 / 1000 1213.333 / 1213.333 Weight last 48 hrs Weight 63.503 kg Physical Exam Const: COMMON NORMALS: no acute distress and patient oriented x3 Resp: COMMON NORMALS: normal respiratory effort, No retractions, No use of accessory muscles and clear to auscultation bilaterally AUSCULTATION: clear to auscultation bilaterally Cardio: COMMON NORMALS: regular rate, regular rhythm, S1 normal heart sound present and S2 normal heart sound present RATE: regular rate RHYTHM: re gular rhythm HEART SOUNDS: S1 normal heart sound present and S2 normal heart sound present GI: COMMON NORMALS: Normal to inspection, nondistended, normoactive bowel sounds present and non-tender Extremity: COMMON NORMALS: no pedal edema Neuro: COMMON NORMALS: patient oriented x3 Psych: COMMON NORMALS: mental status grossly normal Data 03/23/23 10:19 03/23/23 10:19 Micro: Microbiology 03/22/23 13:30 Urine Culture - Preliminary Urine,Clean Catch Gram Negative Rods 03/22/23 14:55 Blood Culture - Preliminary Blood SPECIMEN COLLECTED 03/22/23 14:55 Blood Culture - Preliminary Blood SPECIMEN COLLECTED A&P Assessment and plan (1) Syncope: (2) Atypical chest pain: (3) RAOUL (acute kidney injury): (4) Cystitis: Plan Syncope -neuro check, aspiration precaution, nih strokescale -orthostatic vitals -cardiac echo CONCLUSIONS ?Normal left ventricular size and systolic function, EF 65 %. -carotid artery ultrasound US/CV carotid duplex BI* [id number] IMPRESSION: No carotid arterial stenosis. -ct head CT/CT head wo con* [id number] IMPRESSION: No intracranial injury or calvarial fracture. -she has had back surgery, now with atpical chest pain, ct angiogran no PE Atypical chest pain -serial ekg, serial troponin, telemetry monitoring -coutinue plavix UTI, elevated CRP, normal Pro-Emiliano -countinue rocephin febrile throughout the night, -fllow urine cultures, blood cultures we will order renal artery ultrasound - HTN -hold labetalol RAOUL -IVF normal saline at 100cc/hr Attestations Medical Necessity Statement*: Patient requires hospitalization due to syncope, UTI, febrile, requiring Rocephin Coding Level of Care Code Acute Code for Chg Fwd Diagnoses Syncope R55 Atypical chest pain R07.89 RAOUL (acute kidney injury) N17.9 Cystitis N30.90
[2023-03-23] MEDS: enoxaparin 40 mg/0.4 mL Syringe SUBCUT (14:40)
[2023-03-23] MEDS: pantoprazole 40 mg SDV IVP (15:09)
[2023-03-23] MEDS: calcium carbonate 500 mg Chew Tablet 1000 MG PO (23:01)
[2023-03-24] VITALS (9 sets, daily range): BP systolic 113–150; BP diastolic 71–79; PULSE 50–105; RESP 16–19; TEMP 36.6–37.2; O2SAT 93–96
[2023-03-24 05:38] LABS: Basophils # 0.1 10^3/uL (0.0-0.1); Basophils % 0.4 %; Eosinophils # 0.1 10^3/uL (0.0-0.8); Eosinophils % 0.9 %; Hematocrit 34.8 % (36-47); Lymphocytes % 17.4 %; Mean Corpuscular HGB Conc 34.2 g/dL (30-55); Mean Corpuscular Hemoglobin 30.7 pg (27-33); Mean Corpuscular Volume 89.9 fl (85-98); Mean Platelet Volume 9.3 fL (7.4-10.4); Monocytes # 1.7 10^3/uL (0.2-0.9); Monocytes % 14.4 %; Neutrophils # 7.79 10^3/uL (1.8-7.7); Neutrophils % 66.6 %; Nucleated Red Blood Cells % 0 %; Platelet Count 260 10^3/cmm (157-399); Red Blood Count 3.87 10^6/uL (3.85-5.65); Red Cell Distribution Width 12.4 % (12.1-15.1); White Blood Count 11.69 10^3/uL (3.29-11.43)
[2023-03-24 05:57] LABS: C Reactive Protein 150.3 mg/L (0.0-4.9)
[2023-03-24 06:12] LABS: Anion Gap 13.9 (5-19); Blood Urea Nitrogen 9 mg/dL (8-23); Calcium 8.7 mg/dL (8.5-10.5); Carbon Dioxide 26 mmol/L (22-29); Chloride 99 mmol/L (98-107); Creatinine Clr Calc Pharmacy 47.8117; Glucose 105 mg/dL (65-115); Osmolality Calculated 281 mOsm/kg (285-295); Sodium 136 mmol/L (136-145)
[2023-03-24 06:23] LABS: Potassium 2.9 mmol/L (3.5-5.1)
[2023-03-24] MEDS: potassium chloride ER 20 mEq Tablet 40 MEQ PO (06:48)
[2023-03-24] MEDS: lidocaine 1% 5 ML in potassium chloride premix 100 ML 26.25 ML IV (06:49)
[2023-03-24 06:50] LABS: Magnesium 1.6 mg/dL (1.7-2.3)
[2023-03-24] MEDS: hydroCHLOROthiazide 25 mg Tablet 12.5 MG PO (08:48)
[2023-03-24] MEDS: amlodipine 10 mg Tablet PO (08:48)
[2023-03-24] MEDS: lisinopril 20 mg Tablet PO (08:48)
[2023-03-24] MEDS: sodium chloride 0.9% 1,000 ML 100 ML IV (08:48)
[2023-03-24] MEDS: clopidogrel 75 mg Tablet PO (08:48)
[2023-03-24] MEDS: cefTRIAXone 1,000 MG in sodium chloride 0.9% (plus) 50 ML 100 MG IV (09:41)
[2023-03-24] MEDS: meropenem 1,000 MG in sodium chloride 0.9% (plus) 50 ML 100 MG IV ×2 (12:39→20:41)
[2023-03-24] MEDS: enoxaparin 40 mg/0.4 mL Syringe SUBCUT (14:31)
[2023-03-24] MEDS: pantoprazole 40 mg SDV IVP (14:33)
--- NOTE | 2023-03-24 15:34 | PM.PN ---
Subjective Subjective: Febrile overnight. Urine cultured not detected to be ESBL E. coli. Antibiotics changed. Patient is clinically feeling better. No further episodes of syncope in the hospital. Medications: Reviewed: Yes Vitals/I&O/Wt Last Vital Signs Temp 98.0 F 03/24/23 11:43 Pulse 93 03/24/23 14:00 Resp 16 03/24/23 11:43 BP 132/71 03/24/23 11:43 Pulse Ox 94 03/24/23 11:43 O2 Del Method Room Air 03/23/23 03:58 O2 Flow Rate 0 03/24/23 08:00 03/24/23 03/24/23 03/24/23 06:59 14:59 22:59 Intake Total 1805 / 1805 Balance 1805 / 1805 Physical Exam Narrative: General: No acute distress, AO x3 HEENT: PERRLA, pupils bilaterally equal and reactive, pallors not present Chest: Normal vesicular breath sounds, no added sounds, equal good air entry bilaterally CVS: S1-S2 regular, no murmurs, no tachycardia, no gallops, no rubs Abdomen: Soft, nontender, no organomegaly, bowel sounds present Neuro: No focal deficits, no facial deformity, AO x3, power 5/5 in all limbs Data 03/24/23 04:23 03/24/23 04:23 Micro: Microbiology 03/22/23 13:30 Urine Culture - Final Urine,Clean Catch Escherichia coli esbl 03/22/23 14:55 Blood Culture - Preliminary Blood NEGATIVE TO DATE 03/22/23 14:55 Blood Culture - Preliminary Blood NEGATIVE TO DATE A&P Assessment and plan (1) Syncope: (2) Atypical chest pain: (3) RAOUL (acute kidney injury): (4) Cystitis: Plan # Syncope no episodes in hospital orthostatic vitals within range CTa negative for PE , negative right heart strain cardiac echo with LVEF 65% No carotid arterial stenosis on carotid doppler Will likely need an event monitor at discharge. # Atypical chest pain -serial ekg, serial troponin not concerning for ACS - telemetry monitoring -coutinue plavix # UTI, elevated CRP, normal Pro-Emiliano -Febrile overnight. -ESBL E. coli on urine cultures Change antibiotics from ceftriaxone to meropenem Plan transition to ertapenem if patient discharged, however she may prefer to complete treatment inpatient for 5 days due to difficulty going back and forth from the hospital. Attestations Medical Necessity Statement*: ESBL on urine cultures, change antibiotics to appropriate meropenem today. Coding Level of Care Code Acute Code for g Fwd Diagnoses Syncope R55 Atypical chest pain R07.89 RAOUL (acute kidney injury) N17.9 Cystitis N30.90
[2023-03-25] VITALS (8 sets, daily range): BP systolic 114–142; BP diastolic 68–81; PULSE 76–107; RESP 15–18; TEMP 36.4–37; O2SAT 93–97
[2023-03-25] MEDS: acetaminophen 325 mg Tablet 650 MG PO ×2 (05:05→20:04)
[2023-03-25] MEDS: meropenem 1,000 MG in sodium chloride 0.9% (plus) 50 ML 100 MG IV ×3 (05:05→22:06)
[2023-03-25 05:29] LABS: Basophils # 0.1 10^3/uL (0.0-0.1); Basophils % 0.6 %; Eosinophils # 0.2 10^3/uL (0.0-0.8); Eosinophils % 2.2 %; Hematocrit 35.6 % (36-47); Lymphocytes # 1.9 10^3/uL (0.8-4.8); Lymphocytes % 21.1 %; Mean Corpuscular HGB Conc 34.6 g/dL (30-55); Mean Corpuscular Volume 89.7 fl (85-98); Mean Platelet Volume 9.1 fL (7.4-10.4); Monocytes # 1.3 10^3/uL (0.2-0.9); Monocytes % 14.5 %; Neutrophils # 5.44 10^3/uL (1.8-7.7); Neutrophils % 61.3 %; Nucleated Red Blood Cells % 0 %; Platelet Count 266 10^3/cmm (157-399); Red Blood Count 3.97 10^6/uL (3.85-5.65); Red Cell Distribution Width 12.2 % (12.1-15.1); White Blood Count 8.89 10^3/uL (3.29-11.43)
[2023-03-25 05:48] LABS: C Reactive Protein 98.6 mg/L (0.0-4.9)
[2023-03-25 05:50] LABS: Anion Gap 12.5 (5-19); Blood Urea Nitrogen 11 mg/dL (8-23); Carbon Dioxide 25 mmol/L (22-29); Chloride 100 mmol/L (98-107); Creatinine Clr Calc Pharmacy 47.8117; Glucose 109 mg/dL (65-115); Osmolality Calculated 278 mOsm/kg (285-295); Potassium 3.5 mmol/L (3.5-5.1); Sodium 134 mmol/L (136-145)
--- NOTE | 2023-03-25 08:14 | PC.SOCIAL ---
IMM Update pg 2 of IMM not updated w/ patient as she is currently in observation status.
[2023-03-25] MEDS: hydroCHLOROthiazide 25 mg Tablet 12.5 MG PO (09:15)
[2023-03-25] MEDS: clopidogrel 75 mg Tablet PO (09:15)
[2023-03-25] MEDS: amlodipine 10 mg Tablet PO (09:15)
[2023-03-25] MEDS: lisinopril 20 mg Tablet PO (09:17)
[2023-03-25] MEDS: pantoprazole 40 mg SDV IVP (14:04)
[2023-03-25] MEDS: enoxaparin 40 mg/0.4 mL Syringe SUBCUT (14:04)
--- NOTE | 2023-03-25 17:14 | P.PN_ITS ---
Subjective Subjective: Afebrile last 24 hours. Leukocytosis resolved. States that her abdominal discomfort is improved today. Otherwise hemodynamically stable. Medications: Reviewed: Yes Vitals/I&O/Wt Last Vital Signs Temp 97.5 F L 03/25/23 16:00 Pulse 84 03/25/23 16:00 Resp 17 03/25/23 16:00 BP 137/81 03/25/23 16:00 Pulse Ox 95 03/25/23 16:00 O2 Del Method Room Air 03/23/23 03:58 O2 Flow Rate 0 03/24/23 08:00 03/25/23 03/25/23 03/25/23 06:59 14:59 22:59 Intake Total 50 / 3385 650 / 650 Balance 50 / 3385 650 / 650 Physical Exam Narrative: General: No acute distress, AO x3 HEENT: PERRLA, pupils bilaterally equal and reactive, pallors not present Chest: Normal vesicular breath sounds, no added sounds, equal good air entry bilaterally CVS: S1-S2 regular, no murmurs, no tachycardia, no gallops, no rubs Abdomen: Soft, nontender, no organomegaly, bowel sounds present Neuro: No focal deficits, no facial deformity, AO x3, power 5/5 in all limbs Data 03/25/23 04:56 03/25/23 04:56 A&P Assessment and plan (1) Syncope: (2) Atypical chest pain: (3) RAOUL (acute kidney injury): (4) Cystitis: Plan # Syncope no episodes in hospital orthostatic vitals within range CTa negative for PE , negative right heart strain cardiac echo with LVEF 65% No carotid arterial stenosis on carotid doppler Will likely need an event monitor at discharge. # Atypical chest pain -serial ekg, serial troponin not concerning for ACS - telemetry monitoring -coutinue plavix # UTI, elevated CRP, normal Pro-Emiliano -Febrile overnight. -ESBL E. coli on urine cultures Changed antibiotics from ceftriaxone to meropenem Plan to treat patient with total 5 days of IV antibiotic course. Gave the patient option of transitioning to IV ertapenem once daily and completing the 5- day course as an outpatient with daily infusions at the GI Lab, however patient's son indicated that patient lives by herself and does not have a re liable way of getting to the hospital every day. Given this we will plan to complete a 5-day course in the hospital itself. Day 2 of 5 today Attestations Medical Necessity Statement*: Continued need of IV antibiotics, no good oral alternative available Coding Level of Care Code Acute Code for Chg Fwd Diagnoses Syncope R55 Atypical chest pain R07.89 RAOUL (acute kidney injury) N17.9 Cystitis N30.90
[2023-03-25] MEDS: lactobacillus 1 Tablet 1 TAB PO (18:02)
[2023-03-26] VITALS (10 sets, daily range): BP systolic 96–133; BP diastolic 59–79; PULSE 61–100; RESP 13–16; TEMP 36.4–36.9; O2SAT 93–96
[2023-03-26 04:44] LABS: Basophils # 0.1 10^3/uL (0.0-0.1); Basophils % 0.9 %; Eosinophils # 0.3 10^3/uL (0.0-0.8); Hematocrit 34.8 % (36-47); Lymphocytes # 2.3 10^3/uL (0.8-4.8); Lymphocytes % 29.1 %; Mean Corpuscular HGB Conc 33.9 g/dL (30-55); Mean Corpuscular Hemoglobin 30.4 pg (27-33); Mean Corpuscular Volume 89.7 fl (85-98); Mean Platelet Volume 9.3 fL (7.4-10.4); Monocytes # 1.1 10^3/uL (0.2-0.9); Monocytes % 14.5 %; Neutrophils # 4.01 10^3/uL (1.8-7.7); Neutrophils % 51.1 %; Nucleated Red Blood Cells % 0 %; Platelet Count 271 10^3/cmm (157-399); Red Blood Count 3.88 10^6/uL (3.85-5.65); Red Cell Distribution Width 12.2 % (12.1-15.1); White Blood Count 7.84 10^3/uL (3.29-11.43)
[2023-03-26 05:00] LABS: C Reactive Protein 56.7 mg/L (0.0-4.9)
[2023-03-26 05:12] LABS: Blood Urea Nitrogen 19 mg/dL (8-23); Carbon Dioxide 26 mmol/L (22-29); Chloride 99 mmol/L (98-107); Creatinine Clr Calc Pharmacy 47.8117; Glucose 110 mg/dL (65-115); Osmolality Calculated 285 mOsm/kg (285-295); Sodium 136 mmol/L (136-145)
[2023-03-26 05:21] LABS: Anion Gap 14.7 (5-19); Potassium 3.7 mmol/L (3.5-5.1)
[2023-03-26] MEDS: meropenem 1,000 MG in sodium chloride 0.9% (plus) 50 ML 50 MG IV ×2 (05:46→14:09)
[2023-03-26] MEDS: cetirizine 10 mg Tablet PO (06:15)
[2023-03-26] MEDS: acetaminophen 325 mg Tablet 650 MG PO ×2 (06:17→21:27)
[2023-03-26] MEDS: lactobacillus 1 Tablet 1 TAB PO ×2 (10:28→17:31)
[2023-03-26] MEDS: clopidogrel 75 mg Tablet PO (10:28)
[2023-03-26] MEDS: lisinopril 20 mg Tablet PO (10:28)
[2023-03-26] MEDS: amlodipine 10 mg Tablet PO (10:28)
[2023-03-26] MEDS: hydroCHLOROthiazide 25 mg Tablet 12.5 MG PO (10:29)
[2023-03-26 15:04] LABS: Lyme AB Screen <0.90 index
--- NOTE | 2023-03-26 15:08 | P.PN_ITS ---
Subjective Subjective: no new complaints today, feels well, afebrile, hemodynamically stablee Medications: Reviewed: Yes Vitals/I&O/Wt Last Vital Signs Temp 98.0 F 03/26/23 07:17 Pulse 100 03/26/23 11:35 Resp 15 03/26/23 11:20 BP 105/68 03/26/23 11:20 Pulse Ox 96 03/26/23 11:35 O2 Del Method Room Air 03/26/23 11:35 O2 Flow Rate 0 03/24/23 08:00 03/26/23 03/26/23 03/26/23 06:59 14:59 22:59 Intake Total 100 / 990 480 / 480 Balance 100 / 990 480 / 480 Physical Exam Narrative: General: No acute distress, AO x3 HEENT: PERRLA, pupils bilaterally equal and reactive, pallors not present Chest: Normal vesicular breath sounds, no added sounds, equal good air entry bilaterally CVS: S1-S2 regular, no murmurs, no tachycardia, no gallops, no rubs Abdomen: Soft, nontender, no organomegaly, bowel sounds present Neuro: No focal deficits, no facial deformity, AO x3, power 5/5 in all limbs Data 03/26/23 04:10 03/26/23 04:10 A&P Assessment and plan (1) Syncope: (2) Atypical chest pain: (3) RAOUL (acute kidney injury): (4) Cystitis: Plan # Syncope no episodes in hospital orthostatic vitals within range CTa negative for PE , negative right heart strain cardiac echo with LVEF 65% No carotid arterial stenosis on carotid doppler Will likely need an event monitor at discharge. # Atypical chest pain -serial ekg, serial troponin not concerning for ACS - telemetry monitoring -coutinue plavix # UTI, elevated CRP, normal Pro-Emiliano -now afberile - leukocytsosi resolved -ESBL E. coli on urine cultures Plan to treat patient with total 5 days of IV carbapenems. Gave the patient option of transitioning to IV ertapenem once daily and completing the 5-day course as an outpatient with daily infusions at the GI Lab, however patient's son indicated that patient lives by herself and does not have a reliable way of getting to the hospital every day. Given this we will plan to complete a 5-day course in the hospital itself. Day 3 of 5 today [facility] Necessity Statement*: day 3 of 5 of abx course today Coding Level of Care Code Acute Code for Chg Fwd Diagnoses Syncope R55 Atypical chest pain R07.89 RAOUL (acute kidney injury) N17.9 Cystitis N30.90
[2023-03-26] MEDS: pantoprazole 40 mg SDV IVP (16:00)
[2023-03-26] MEDS: enoxaparin 40 mg/0.4 mL Syringe SUBCUT (16:00)
[2023-03-26] MEDS: meropenem 1,000 MG in sodium chloride 0.9% (plus) 50 ML 100 MG IV (20:40)
[2023-03-27] VITALS (10 sets, daily range): BP systolic 110–126; BP diastolic 64–71; PULSE 65–96; RESP 14–16; TEMP 36.7–36.9; O2SAT 92–97
[2023-03-27] MEDS: meropenem 1,000 MG in sodium chloride 0.9% (plus) 50 ML 100 MG IV ×3 (05:37→21:47)
[2023-03-27] MEDS: lactobacillus 1 Tablet 1 TAB PO ×2 (08:14→17:03)
[2023-03-27] MEDS: lisinopril 20 mg Tablet PO (08:14)
[2023-03-27] MEDS: hydroCHLOROthiazide 25 mg Tablet 12.5 MG PO (08:14)
[2023-03-27] MEDS: amlodipine 10 mg Tablet PO (08:14)
[2023-03-27] MEDS: clopidogrel 75 mg Tablet PO (08:14)
[2023-03-27] MEDS: pantoprazole 40 mg SDV IVP (14:25)
[2023-03-27] MEDS: enoxaparin 40 mg/0.4 mL Syringe SUBCUT (14:26)
--- NOTE | 2023-03-27 15:29 | PM.PN ---
Subjective Subjective: No new complaints today. States that she is feeling well. Afebrile, hemodynamically stable. Laboratorybreak today. Medications: Reviewed: Yes Vitals/I&O/Wt Last Vital Signs Temp 98.0 F 03/27/23 11:21 Pulse 96 03/27/23 14:00 Resp 15 03/27/23 11:21 BP 114/65 03/27/23 11:21 Pulse Ox 95 03/27/23 11:21 O2 Del Method Room Air 03/27/23 11:21 O2 Flow Rate 0 03/24/23 08:00 03/27/23 03/27/23 03/27/23 06:59 14:59 22:59 Intake Total 50 / 870 530 / 530 Balance 50 / 870 530 / 530 Physical Exam Narrative: General: No acute distress, AO x3 HEENT: PERRLA, pupils bilaterally equal and reactive, pallors not present Chest: Normal vesicular breath sounds, no added sounds, equal good air entry bilaterally CVS: S1-S2 regular, no murmurs, no tachycardia, no gallops, no rubs Abdomen: Soft, nontender, no organomegaly, bowel sounds present Neuro: No focal deficits, no facial deformity, AO x3, power 5/5 in all limbs Data 03/26/23 04:10 03/26/23 04:10 Micro: Microbiology 03/22/23 14:55 Blood Culture - Final Blood NO GROWTH AFTER 5 DAYS 03/22/23 14:55 Blood Culture - Final Blood NO GROWTH AFTER 5 DAYS A&P Assessment and plan (1) Syncope: (2) Atypical chest pain: (3) RAOUL (acute kidney injury): (4) Cystitis: Plan # Syncope no episodes in hospital orthostatic vitals within range CTa negative for PE , negative right heart strain cardiac echo with LVEF 65% No carotid arterial stenosis on carotid doppler Will likely need an event monitor at discharge. # Atypical chest pain -serial ekg, serial troponin not concerning for ACS - telemetry monitoring -coutinue plavix # UTI, elevated CRP, normal Pro-Emiliano -now afberile - leukocytsosi resolved -ESBL E. coli on urine cultures Plan to treat patient with total 5 days of IV carbapenems. Gave the patient option of transitioning to IV ertapenem once daily and completing the 5-day course as an outpatient with daily infusions at the GI Lab, however patient's son indicated that patient lives by herself and does not have a reliable way of getting to the hospital every day. Given this we will plan to complete a 5-day course in the hospital itself. Day 4 of 5 today Attestations Medical Necessity Statement*: ongoing need for iv abx Coding Level of Care Code Acute Code for Chg Fwd Straight Forward/Low MDM includes number and complexity of problems actively addressed during encounter, amount and/or complexity of data reviewed/ordered and described risk of complication, morbidity or mortality of management as documented Diagnoses Syncope R55 Atypical chest pain R07.89 RAOUL (acute kidney injury) N17.9 Cystitis N30.90
[2023-03-28 03:49] VITALS: BP 126/74; PULSE 80; RESP 15; TEMP 36.8; O2SAT 94
[2023-03-28 05:19] VITALS: PULSE 81
[2023-03-28] MEDS: meropenem 1,000 MG in sodium chloride 0.9% (plus) 50 ML 100 MG IV (05:52)
[2023-03-28 08:00] VITALS: BP 118/70; BP 129/81; PULSE 103; PULSE 73; RESP 16; TEMP 36.6; TEMP 36.7; O2SAT 95
[2023-03-28] MEDS: lisinopril 20 mg Tablet PO (08:49)
[2023-03-28] MEDS: hydroCHLOROthiazide 25 mg Tablet 12.5 MG PO (08:49)
[2023-03-28] MEDS: lactobacillus 1 Tablet 1 TAB PO (08:49)
[2023-03-28] MEDS: clopidogrel 75 mg Tablet PO (08:50)
[2023-03-28] MEDS: amlodipine 10 mg Tablet PO (08:50)
[2023-03-28 11:20] VITALS: BP 118/70; PULSE 73; RESP 16; TEMP 36.7; O2SAT 95
[2023-03-28] MEDS: ertapenem 1,000 MG in sodium chloride 0.9% (plus) 100 ML 200 MG IV (11:35)
[2023-03-28 12:00] VITALS: BP 118/70; PULSE 73; RESP 16; TEMP 36.7
--- NOTE | 2023-03-28 14:33 | PM.DCS ---
Discharge Providers Date of Admission: 03/22/23 14:24 Date of Discharge: March 28, 2023 Attending Provider at Admission: Salinas Rasheed MD Attending Provider at Discharge: Ann Coughlin MD Primary Care Provider: Ramila Ahumada Diagnoses at Discharge Discharge Diagnosis (1) Syncope: Status: Acute (2) Atypical chest pain: Status: Acute (3) RAOUL (acute kidney injury): Status: Acute (4) Cystitis: Status: Acute Reason for Visit Reason for Visit: SYNCOPE Brief History: 82-year-old female presented to the emergency room on 03/22 after syncopal episode.? She was dizzy and had episode of chest pain radiating to her back for the last 3 or 4 days.?on day of admission she had a episode where she was standing in her door talking to a family member she turned and went inside and collapsed.?She has been chest pain free subsequently. She was also c/o dysuria, urinary urgency and frequency and had fever during admission. Hospital course as below: Hospital Course Hospital Course # Syncope ?No episodes in hospital orthostatic vitals within range, lowest blood pressure 96/50 during admission CTA negative for PE , negative right heart strain cardiac echo with LVEF 65% No carotid arterial stenosis on carotid doppler . No events on telemetry . Patient had Holter monitor placed in May 2022 at which time her baseline rhythm was noted to be normal sinus with an overall average heart rate of 65 bpm. There was 25% instances of sinus bradycardia with minimum heart rate charted at 50 bpm. Maximum recorded heart rate was 118 and sinus tachycardia. Overall impression was that of normal sinus rhythm with frequent VPCs and rare ventricular ectopics. No pauses or significant tacky or bradycardia arrhythmias were identified. Trop series 17-->14--> 12, no concern for ACS Possible that her syncope may have been related to an episode of orthostatic hypotension. While in the hospital patient remained on amlodipine, hydrochlorothiazide, and IVANNA inhibitors. Labetalol was kept on hold and patient's blood pressure was very well controlled even off of this medication. Labetalol has been discontinued at discharge. Patient has been advised to keep a blood pressure log by checking her BP twice a day every day and take the chart for review to her primary care doctor. # Atypical chest pain -serial ekg, serial troponin not concerning for ACS - chest pain has not recurred in the hospital - telemetry monitoring without acute changes -coutinue plavix # UTI, -ESBL E. coli on urine cultures - fever and leukocytosis resolved after starting carbapenems per susceptibility results. She received total 5 days treatment Symptoms of dysuria and urinary frequency resolved completely with treatment. Patient states she has been having recurrent UTIs since November [address] [facility]. I do not have her urine cultures or past treatment history for review at this time but possible that having ESBL organism she did not respond to oral antibiotics due to resistance. She has been given Bactrim prescription currently for a pill in pocket approach for future recurrences of UTI. Should she require Bactrim prescription more than 3 times in a year or no improvement in symptoms, she is instructed to follow-up with infectious disease as outpatient and also follow-up with urology. She feels well on the day of discharge Physical Exam Narrative: General: No acute distress, AO x3 HEENT: PERRLA, pupils bilaterally equal and reactive, pallors not present Chest: Normal vesicular breath sounds, no added sounds, equal good air entry bilaterally CVS: S1-S2 regular, no murmurs, no tachycardia, no gallops, no rubs Abdomen: Soft, nontender, no organomegaly, bowel sounds present Neuro: No focal deficits, no facial deformity, AO x3, power 5/5 in all limbs Discharge Data Studies Completed and Pending Completed Studies During Hospitalization Category Date Time Status CT angio chest PE protcl [id number] Stat Cat Scan 03/22/23 15:[address] cervical spin wo con* [id number] Stat Cat Scan 03/22/23 13:[address] head wo con* [id number] Stat Cat Scan 03/22/23 13:39 Completed XR chest 1V portable [id number] Stat Exams 03/22/23 12:54 Completed CV carotid duplex BI* [id number] Routine Ultrasound 03/22/23 14:24 Completed CV. echo complete* [id number] Routine Ultrasound 03/22/23 14:24 Completed US renal BI* [id number] Routine Ultrasound 03/23/23 08:53 Completed Pending at discharge Category Date Time Status Tick Panel Routine Lab 03/25/23 04:56 Results Radiology Impressions Chest X-Ray 03/22/23 12:54 IMPRESSION: No acute finding. Cervical Spine CT 03/22/23 13:39 IMPRESSION: 1. No acute osseous abnormality. 2. Multilevel degenerative changes. Head CT 03/22/23 13:39 IMPRESSION: No intracranial injury or calvarial fracture. Carotid Doppler Study 03/22/23 14:24 IMPRESSION: No carotid arterial stenosis. REFERENCES: SRU CRITERIA. The degree of internal carotid artery stenosis is based on criteria defined by the Society of Radiologists in Ultrasound (SRU). Normal is no stenosis. Mild is less than 50% stenosis. Moderate is 50-69% stenosis. Severe is greater than 69% stenosis to near occlusion. Near occlusion is a markedly narrowed lumen. Total occlusion is no detectable patent lumen. Chest CTA 03/22/23 15:14 IMPRESSION: 1. Negative for pulmonary embolism. 2. Negative for right heart strain. 3. Heavy coronary artery calcifications 4. A few scattered calcified granulomas in both lungs Renal Ultrasound 03/23/23 08:53 IMPRESSION: 1. Negative for hydronephrosis or renal calculus. 2. Small amount of layering nonspecific debris in the urinary bladder. Laboratory Results WBC 7.84 10^3/uL (3.29-11.43) 03/26/23 04:10 RBC 3.88 10^6/uL (3.85-5.65) 03/26/23 04:10 Hgb 11.80 g/dL (11.27-16.99) 03/26/23 04:10 Hct 34.8 % (36-47) L 03/26/23 04:10 MCV 89.7 fl (85-98) 03/26/23 04:10 MCH 30.4 pg (27-33) 03/26/23 04:10 MCHC 33.9 g/dL (30-55) 03/26/23 04:10 RDW 12.2 % (12.1-15.1) 03/26/23 04:10 Plt Count 271 10^3/cmm (157-399) 03/26/23 04:10 MPV 9.3 fL (7.4-10.4) 03/26/23 04:10 Neut % (Auto) 51.1 % 03/26/23 04:10 Lymph % (Auto) 29.1 % 03/26/23 04:10 [place] % (Auto) 14.5 % 03/26/23 04:10 Eos % (Auto) 4.0 % 03/26/23 04:10 Baso % (Auto) 0.9 % 03/26/23 04:10 Neut # (Auto) 4.01 10^3/uL (1.8-7.7) 03/26/23 04:10 Lymph # (Auto) 2.3 10^3/uL (0.8-4.8) 03/26/23 04:10 [place] # (Auto) 1.1 10^3/uL (0.2-0.9) H 03/26/23 04:10 Eos # (Auto) 0.3 10^3/uL (0.0-0.8) 03/26/23 04:10 Baso # (Auto) 0.1 10^3/uL (0.0-0.1) 03/26/23 04:10 Nucleated RBC % (auto) 0 % 03/26/23 04:10 Nucleated RBCs # 0.0 /100WBC 03/26/23 04:10 ESR 13 mm/hr (0-15) 03/22/23 17:08 PT 14.50 SECONDS (12.1-14.9) 03/22/23 11:57 INR 1.10 (0.8-1.2) 03/22/23 11:57 Sodium 136 mmol/L (136-145) 03/26/23 04:10 Potassium 3.7 mmol/L (3.5-5.1) 03/26/23 04:10 Chloride 99 mmol/L (98-107) 03/26/23 04:10 Carbon Dioxide 26 mmol/L (22-29) 03/26/23 04:10 Anion Gap 14.7 (5-19) 03/26/23 04:10 BUN 19 mg/dL (8-23) 03/26/23 04:10 Creatinine 0.7 mg/dL (0.5-0.9) 03/26/23 04:10 GFR Calculation Not Reportable 03/26/23 04:10 Glucose 110 mg/dL (65-115) 03/26/23 04:10 Estimat Average Glucose 117 03/22/23 11:57 Hemoglobin A1c 5.7 % (4.0-6.0) 03/22/23 11:57 Calculated Osmolality 285 mOsm/kg (285-295) 03/26/23 04:10 Lactic Acid 1.2 mmol/L (0.5-2.2) 03/22/23 14:55 Calcium 9.0 mg/dL (8.5-10.5) 03/26/23 04:10 Phosphorus 3.8 mg/dL (2.5-4.5) 03/22/23 11:57 Magnesium 1.6 mg/dL (1.7-2.3) L 03/24/23 04:23 Total Bilirubin 0.5 mg/dL (0.15-1.2) 03/23/23 10:19 AST 14 U/L (0-32) 03/23/23 10:19 ALT 9 U/L (0-33) 03/23/23 10:19 Alkaline Phosphatase 65 U/L (35-105) 03/23/23 10:19 Troponin T Baseline 17 ng/L (0-10) H 03/22/23 11:57 Troponin T 120 Minute 14.30 ng/L (0-10) H 03/22/23 14:02 Delta Troponin T -2.70 ABS# (0-10) L 03/22/23 14:02 Troponin T Hi Sens 6Hr 12.54 ng/L (0-10) H 03/22/23 18:24 Troponin T Hi Sens 6Hr Delta -4.46 ng/L (0-12) L 03/22/23 18:24 C-Reactive Protein 56.7 mg/L (0.0-4.9) H 03/26/23 04:10 NT-Pro-B Natriuret Pep 699 pg/mL (0-450) H 03/22/23 11:57 Total Protein 7.0 g/dL (6.6-8.7) 03/23/23 10:19 Albumin 4.1 g/dL (3.5-5.2) 03/23/23 10:19 Globulin 2.9 g/dL (1.3-4.6) 03/23/23 10:19 Triglycerides 130 mg/dL (0-150) 03/22/23 11:57 Cholesterol 252 mg/dL (0-200) H 03/22/23 11:57 LDL Cholesterol, Calc 168 mg/dL (50-129) H 03/22/23 11:57 HDL Cholesterol 58 mg/dL (60-100) L 03/22/23 11:57 LDL/HDL Ratio 2.90 RATIO (0.00-3.22) 03/22/23 11:57 Cholesterol/HDL Ratio 4.34 mg/dL (0.0-4.40) 03/22/23 11:57 Procalcitonin 0.22 ng/mL (0-0.5) 03/22/23 11:57 TSH 2.27 uIU/mL (0.27-4.20) 03/22/23 11:57 Urine Color Yellow (Yellow) 03/22/23 13:30 Urine Appearance Cloudy (CLEAR) A 03/22/23 13:30 Urine pH 5 (5-7) 03/22/23 13:30 Ur Specific [place] 1.010 (1.005-1.030) 03/22/23 13:30 Urine Protein Trace (Negative) 03/22/23 13:30 Urine Glucose (UA) Norm (Normal) 03/22/23 13:30 Urine Ketones Negative (Negative) 03/22/23 13:30 Urine Blood 3+ (Negative) H 03/22/23 13:30 Urine Nitrate Negative (Negative) 03/22/23 13:30 Urine Bilirubin Neg (Negative) 03/22/23 13:30 Urine Urobilinogen Norm mg/dL (Negative) 03/22/23 13:30 Ur Leukocyte Esterase 2+ (Negative) H 03/22/23 13:30 Urine RBC 10-15 /hpf (0-2) H 03/22/23 13:30 Urine WBC Too numerous to cnt /hpf (0-5) H 03/22/23 13:30 Ur Squamous Epith Cells Rare /hpf (0-5) 03/22/23 13:30 Amorphous Sediment Not Reportable 03/22/23 13:30 Urine Bacteria 3+ /hpf (NONE) H 03/22/23 13:30 Nasal Influ A H1 2009 PCR Not detected (NOT DETECT) 03/23/23 10:42 Adenovirus (PCR) Not detected (NOT DETECT) 03/23/23 10:42 Lyme Ab (Western Blot) <0.90 index 03/25/23 04:56 C. pneumoniae DNA (PCR) Not detected (NOT DETECT) 03/23/23 10:42 Coronavirus 229E (PCR) Not detected (NOT DETECT) 03/23/23 10:42 Human Metapneumovir PCR Not detected (NOT DETECT) 03/23/23 10:42 Influenza A (H1) PCR Not detected (NOT DETECT) 03/23/23 10:42 Influenza A (H3) PCR Not detected (NOT DETECT) 03/23/23 10:42 Influenza Type A (PCR) Not detected (NOT DETECT) 03/23/23 10:42 Influenza Type B (PCR) Not detected (NOT DETECT) 03/23/23 10:42 M. pneumoniae (PCR) Not detected (NOT DETECT) 03/23/23 10:42 Parainfluenza 1 (PCR) Not detected (NOT DETECT) 03/23/23 10:42 Parainfluenza 2 (PCR) Not detected (NOT DETECT) 03/23/23 10:42 Parainfluenza 3 (PCR) Not detected (NOT DETECT) 03/23/23 10:42 Parainfluenza 4 (PCR) Not detected (NOT DETECT) 03/23/23 10:42 RSV Type A (PCR) Not detected (NOT DETECT) 03/23/23 10:42 RSV Type B (PCR) Not detected (NOT DETECT) 03/23/23 10:42 Entero/Rhino (PCR) Not detected (NOT DETECT) 03/23/23 10:42 SARS-CoV-2 (PCR) Not detected (NOT DETECT) 03/23/23 10:42 Vitals Last Vital Signs Temp 98.1 F 03/28/23 11:20 Pulse 73 03/28/23 11:20 Resp 16 03/28/23 11:20 BP 118/70 03/28/23 11:20 Pulse Ox 95 03/28/23 11:20 O2 Del Method Room Air 03/28/23 08:00 O2 Flow Rate 0 03/24/23 08:00 Discharge Plan Discharge Patient Disposition: Home Condition: Stable Prescriptions: New Bactrim DS 800-160 mg tablet 1 tab PO BID PRN (Reason: UTI) 5 Days Qty: 10 5RF Continued clopidogrel 75 mg tablet 75 mg PO DAILY quinapril-hydrochlorothiazide 20-12.5 mg tablet 1 tab PO DAILY amlodipine 10 mg tablet 10 mg PO DAILY Qty: 30 0RF Tylenol 325 mg Capsule 650 mg PO QID PRN (Reason: Pain) loratadine 10 mg Capsule 10 mg PO DAILY PRN (Reason: Allergy Symptoms) vitamin [id number] acid 0.5-1 mg Tablet 1 tab PO DAILY Held labetalol 200 mg tablet 200 mg PO BID Hold Instructions: Resume on 04/11/23. Discharge Orders: Discharge Order (Routine); Ordered 03/28/23 Ordered By: Ann Coughlin Referrals: [facility] [Provider Group] - 1 month (in case of recurrent UTI only, else no follow up needed ) Maldonado Deshpande [Referring] - (We have notified your physician's clinic of the need for a follow-up appointment to be scheduled. If you have not heard from them within the next 2 business days, please call them directly. You may also reach out to our district manager in training at [phone] and she can assist you.) Ramila Ahumada PA [Primary Care Provider] - 04/02/23 1:00 pm Discharge Diet: Usual diet Discharge Activity: Resume usual activity Patient Instructions: Sulfamethoxazole/Trimethoprim (By mouth), Acute Kidney Injury (GEN), Urinary Tract Infection in Women (GEN), Opioid Safety Discharge Attestations Time Spent in Discharge Care*: greater than 30 min Quality Metrics Clinical Quality Measures [ No reported AMI, CVA or VTE this stay] Coding Level of Care Code Acute Code for Chg Fwd Diagnoses Syncope R55 Atypical chest pain R07.89 RAOUL (acute kidney injury) N17.9 Cystitis N30.90
[2023-03-28 16:11] VITALS: BP 118/70; PULSE 73; RESP 16; TEMP 36.7
[2023-03-29 16:25] LABS: RMSF IGG NOT DETECTED; RMSF IGM NOT DETECTED
[2023-03-29 22:10] LABS: E. Chaffeensis AB IGG <1:64; E. Chaffeensis AB IGM <1:20
== END 2023-03-28 15:01 | disposition home or self-care (01) ==
LOC: ER 14:53 → MEDSURG 20:08
PROVIDERS: Internal Medicine; Admitting Provider Family Medicine; Emergency Provider Family Medicine; PCP Physician Assistant; Visit Provider Student in an Organized Health Care Education/Training Program
DX: R07.89 Other chest pain (principal); N17.9 Acute kidney failure, unspecified; N30.90 Cystitis, unspecified without hematuria; I45.10 Unspecified right bundle-branch block; I10 Essential (primary) hypertension; Z86.73 Personal history of transient ischemic attack (TIA), and cerebral infarction without residual deficits
CPT/HCPCS: 36415; 70450; 71045; 71275; 72125; 76770; 80048; 80053; 80061; 81001; 83036; 83605; 83735; 83880; 84100; 84145; 84443; 84484; 85025; 85610; 85651; 86140; 86618; 86666; 86757; 87040; 87077; 87086; 87186; 87486; 87581; 87633; 93005; 93306; 93880; 94664; 96365; 96366; 96367; 96372; 96375; 97116; 97161; 97165; 99285; C9113; G0378; J0696; J1335; J1650; J2185; J3480; J7030; Q9967

== ENCOUNTER 2023-04-23 11:12 | Observation (INO) | payer MEDICARE, SELFPAY ==
[2023-04-23 11:26] VITALS: BP 146/81; PULSE 96; RESP 18; TEMP 37; O2SAT 94; BMI 25.6
--- NOTE | 2023-04-23 11:53 | ED_ITS ---
HPI - General Adult General: Chief complaint: General Medical Stated complaint: UTI Time Seen by Provider: 04/23/23 11:23 History of Present Illness: 83-year-old female presents to the emergency department with complaints of nausea and vomiting. She states she has also had associated dysuria and lower abdominal and right flank pain. She states that she was recently here in the [facility] and treated for pyelonephritis approximately 1 month ago. She states she was discharged and was advised to take Bactrim as needed. She states she does have a follow-up with a urologist and her primary care provider in approximately 1 week. She states her discomfort is a 2 out of 10 intermittent pressure/cramping type pain. She states that she did have a fever last night and given her recent hospitalization became concerned that she might be having another urinary tract infection. Patient states that she has had a longstanding history of recurrent urinary tract infections. Associated symptoms: Reports malaise, nausea and vomiting Review of Systems General: Reports: 10 or more systems reviewed and unremarkable except in HPI and below Const: Reports: fever(s), fatigue and malaise GI: Reports: abdominal pain, nausea and vomiting : Reports: flank pain, dysuria and urinary frequency PFSH ED PFSH: Medical History (Updated 04/23/23 @ 17:55 by Jack Cheung MD) Diastolic dysfunction without heart failure History of CVA (cerebrovascular accident) Hypertension Urinary tract infection due to extended-spectrum beta lactamase (ESBL) producing Escherichia coli Surgical History History of back surgery Family History (Updated 03/22/23 @ 15:19 by Salinas Rasheed MD) Father Stroke Social History (Updated 03/22/23 @ 15:19 by Salnias Rasheed MD) Smoking and tobacco status: never smoked Alcohol intake: never Substance/Drug Use: never Physical Exam Const: COMMON NORMALS: no acute distress, average body habitus, patient oriented x3 and alert HENMT: COMMON NORMALS: normocephalic, atraumatic, hearing grossly normal bilaterally and moist oral mucous membranes HEAD & SCALP: normocephalic and atraumatic Eye: COMMON NORMALS: Equal, round and reactive pupils present and EOMs intact bilaterally PUPIL: Yes Equal, round and reactive pupils present Neck/C-Spine: COMMON NORMALS: full ROM, no lymphadenopathy, supple and no meningeal signs Chest: COMMONS NORMALS: normal inspection of the chest and normal palpation of entire chest wall Resp: COMMON NORMALS: normal respiratory effort and clear to auscultation bilaterally AUSCULTATION: clear to auscultation bilaterally Cardio: COMMON NORMALS: regular rate, regular rhythm, S1 normal heart sound present and S2 normal heart sound present RATE: regular rate RHYTHM: regular rhythm HEART SOUNDS: S1 normal heart sound present and S2 normal heart sound present GI: COMMON NORMALS: Normal to inspection, nondistended, normoactive bowel sounds present, Soft to palpation and non-tender PALPATION: Yes Soft to palpation : COMMON NORMALS: Yes no CVA tenderness BLADDER/KIDNEY EXAM: Yes no CVA tenderness Back/Pelvis: COMMON NORMALS: no CVA tenderness, thoracic and lumbar spine normal to inspection and thoraco-lumbar ROM normal Extremity: COMMON NORMALS: normal to inspection, full ROM and capillary refill normal Neuro: COMMON NORMALS: patient oriented x3, moves all extremities and no focal motor deficits SENSORIUM/ORIENTATION: Yes alert MENINGEAL SIGNS: Yes no meningeal signs Psych: COMMON NORMALS: mental status grossly normal, Normal thought process present and cooperative THOUGHT PROCESS: Normal thought process present Skin: COMMON NORMALS: no rashes or lesions noted and turgor normal GENERAL SKIN EXAM: no rashes or lesions noted and turgor normal Course Vital Signs: Vital signs: Vital Signs Temperature 98.4 F 04/23/23 19:43 Pulse Rate 76 04/23/23 19:43 Respiratory Rate 16 04/23/23 19:43 Blood Pressure 94/51 04/23/23 19:43 Pulse Oximetry 91 04/23/23 19:43 Oxygen Delivery Me thod Room Air 04/23/23 19:43 MDM - General Adult Medical Decision Making Physical exam completed and documented, I reviewed the patient's previous medical records as well as her urine culture does appear that she was recently in the hospital for pyelonephritis with a urine culture growing out greater than 100,000 E. coli. I reviewed the susceptibilities and it does appear that she is resistant to many antibiotics with the exception of imipenem and Bactrim. I did obtain a repeat urinalysis which demonstrated a continued urinary tract infection despite her intermittent Bactrim DS usage. We did obtain a CBC as well as a CMP and blood cultures. I did discuss the patient's presentation as well as need for admission with the hospitalist physician he excepted for additional evaluation treatment and care. He did request that I obtain a CT abdomen pelvis with IV contrast. Patient was provided IV fluid for rehydration as well as IV Zofran for nausea and I did prescribe imipenem after discussing the patient's urine susceptibilities and resistance with both the pharmacist and the hospitalist. Patient was noted to have a low sodium level and I did advise the hospitalist of this finding. Differential Diagnosis Pyelonephritis, UTI, hyponatremia, viral illness. Medical Records I reviewed the patient's medical records. Lab Data I reviewed the patient's lab results. 04/23/23 12:05 04/23/23 12:05 Radiology Impressions Abdomen/Pelvis CT 04/23/23 16:22 IMPRESSION: No acute abnormality demonstrated in the abdomen and pelvis. COMMENTS: Consistent with the [employer]'s Incidental Findings Committee white paper (J Am Jigar Radiol 2018): Any incidental renal lesion less than 1 cm or classified as too small to characterize, or any incidental cystic renal lesion characterized as simple-appearing, is likely benign. No follow-up imaging is recommended for these lesions per consensus recommendations based on imaging criteria. Laboratory Results WBC 12.01 10^3/uL (3.29-11.43) H 04/23/23 12:05 RBC 4.03 10^6/uL (3.85-5.65) 04/23/23 12:05 Hgb 12.50 g/dL (11.27-16.99) 04/23/23 12:05 Hct 36.4 % (36-47) 04/23/23 12:05 MCV 90.3 fl (85-98) 04/23/23 12:05 MCH 31.0 pg (27-33) 04/23/23 12:05 MCHC 34.3 g/dL (30-55) 04/23/23 12:05 RDW 12.8 % (12.1-15.1) 04/23/23 12:05 Plt Count 228 10^3/cmm (157-399) 04/23/23 12:05 MPV 8.7 fL (7.4-10.4) 04/23/23 12:05 Neut % (Auto) 87.6 % 04/23/23 12:05 Lymph % (Auto) 3.4 % 04/23/23 12:05 [place] % (Auto) 6.2 % 04/23/23 12:05 Eos % (Auto) 2.2 % 04/23/23 12:05 Baso % (Auto) 0.2 % 04/23/23 12:05 Neut # (Auto) 10.51 10^3/uL (1.8-7.7) H 04/23/23 12:05 Lymph # (Auto) 0.4 10^3/uL (0.8-4.8) L 04/23/23 12:05 [place] # (Auto) 0.8 10^3/uL (0.2-0.9) 04/23/23 12:05 Eos # (Auto) 0.3 10^3/uL (0.0-0.8) 04/23/23 12:05 Baso # (Auto) 0.0 10^3/uL (0.0-0.1) 04/23/23 12:05 Nucleated RBC % (auto) 0 % 04/23/23 12:05 Nucleated RBCs # 0.0 /100WBC 04/23/23 12:05 Sodium 129 mmol/L (136-145) L 04/23/23 12:05 Potassium 3.7 mmol/L (3.5-5.1) 04/23/23 12:05 Chloride 93 mmol/L (98-107) L 04/23/23 12:05 Carbon Dioxide 23 mmol/L (22-29) 04/23/23 12:05 Anion Gap 16.7 (5-19) 04/23/23 12:05 BUN 21 mg/dL (8-23) 04/23/23 12:05 Creatinine 1.0 mg/dL (0.5-0.9) H 04/23/23 12:05 GFR Calculation Not Reportable 04/23/23 12:05 Glucose 120 mg/dL (65-115) H 04/23/23 12:05 Calculated Osmolality 272 mOsm/kg (285-295) L 04/23/23 12:05 Lactic Acid 1.7 mmol/L (0.5-2.2) 04/23/23 12:05 Calcium 8.8 mg/dL (8.5-10.5) 04/23/23 12:05 Total Bilirubin 0.5 mg/dL (0.15-1.2) 04/23/23 12:05 AST 15 U/L (0-32) 04/23/23 12:05 ALT 9 U/L (0-33) 04/23/23 12:05 Alkaline Phosphatase 63 U/L (35-105) 04/23/23 12:05 Total Protein 6.9 g/dL (6.6-8.7) 04/23/23 12:05 Albumin 4.1 g/dL (3.5-5.2) 04/23/23 12:05 Globulin 2.8 g/dL (1.3-4.6) 04/23/23 12:05 Procalcitonin 0.49 ng/mL (0-0.5) 04/23/23 12:05 Urine Color Yellow (Yellow) 04/23/23 13:08 Urine Appearance Hazy (CLEAR) A 04/23/23 13:08 Urine pH 5 (5-7) 04/23/23 13:08 Ur Specific [place] 1.010 (1.005-1.030) 04/23/23 13:08 Urine Protein Neg (Negative) 04/23/23 13:08 Urine Glucose (UA) Norm (Normal) 04/23/23 13:08 Urine Ketones Negative (Negative) 04/23/23 13:08 Urine Blood 3+ (Negative) H 04/23/23 13:08 Urine Nitrate Positive (Negative) H 04/23/23 13:08 Urine Bilirubin Neg (Negative) 04/23/23 13:08 Urine Urobilinogen Norm mg/dL (Negative) 04/23/23 13:08 Ur Leukocyte Esterase 2+ (Negative) H 04/23/23 13:08 Urine RBC 5-10 /hpf (0-2) H 04/23/23 13:08 Urine WBC 15-25 /hpf (0-5) H 04/23/23 13:08 Ur Squamous Epith Cells 0-4 /hpf (0-5) H 04/23/23 13:08 Amorphous Sediment Not Reportable 04/23/23 13:08 Urine Bacteria 2+ /hpf (NONE) H 04/23/23 13:08 Urine Mucus None /hpf 04/23/23 13:08 All radiology interpretation(s) finalized by discharge Discharge Plan Discharge Patient Disposition: Admitted As Inpatient Admit Provider: Jack Cheung Clinical Impression: Bacterial UTI, Acute hyponatremia, Nausea & vomiting Condition: Stable Coding Level of Care Code ED Seal Mixer for Kevin Berrios
[2023-04-23 12:23] LABS: Basophils % 0.2 %; Eosinophils # 0.3 10^3/uL (0.0-0.8); Eosinophils % 2.2 %; Hematocrit 36.4 % (36-47); Lymphocytes # 0.4 10^3/uL (0.8-4.8); Lymphocytes % 3.4 %; Mean Corpuscular HGB Conc 34.3 g/dL (30-55); Mean Corpuscular Volume 90.3 fl (85-98); Mean Platelet Volume 8.7 fL (7.4-10.4); Monocytes # 0.8 10^3/uL (0.2-0.9); Monocytes % 6.2 %; Neutrophils # 10.51 10^3/uL (1.8-7.7); Neutrophils % 87.6 %; Nucleated Red Blood Cells % 0 %; Platelet Count 228 10^3/cmm (157-399); Red Blood Count 4.03 10^6/uL (3.85-5.65); Red Cell Distribution Width 12.8 % (12.1-15.1); White Blood Count 12.01 10^3/uL (3.29-11.43)
[2023-04-23 12:45] LABS: Lactic Sepsis W/Reflex 1.7 mmol/L (0.5-2.2)
[2023-04-23 12:47] LABS: Alanine Aminotransferase 9 U/L (0-33); Albumin Level 4.1 g/dL (3.5-5.2); Alkaline Phosphatase 63 U/L (35-105); Anion Gap 16.7 (5-19); Aspartate Amino Transferase 15 U/L (0-32); Blood Urea Nitrogen 21 mg/dL (8-23); Calcium 8.8 mg/dL (8.5-10.5); Carbon Dioxide 23 mmol/L (22-29); Chloride 93 mmol/L (98-107); Globulin 2.8 g/dL (1.3-4.6); Glucose 120 mg/dL (65-115); Osmolality Calculated 272 mOsm/kg (285-295); Potassium 3.7 mmol/L (3.5-5.1); Sodium 129 mmol/L (136-145); Total Bilirubin 0.5 mg/dL (0.15-1.2); Total Protein 6.9 g/dL (6.6-8.7)
--- NOTE | 2023-04-23 12:48 | PC.PHAR ---
PT STATES SHE TAKES CARE OF HER OWN MEDICATIONS-PT STATES SHE THINKS THE LABETALOL 200MG BID IS ON HOLD EXT SHOWS LAST FILLED 03/31/23 90D/S-PT STATES SHE IS UNSURE OF ALL THE NAMES OF HER MEDICATIONS-MEDICATIONS ENTERED ARE FROM THE PT COULD REMEMBER AND WHAT EXT SHOWS HAS BEEN FILLED RECENTLY-PT STATES SHE HAS TAKEN ~3-4 TABS OF BACTRIM DS PT STATES SHE KEEPS THEM ON HAND AND TAKES PRN-
[2023-04-23 12:54] LABS: Procalcitonin 0.49 ng/mL (0-0.5)
[2023-04-23 13:25] LABS: Add Urine Microscopic? YES; Bilirubin Urine Neg (Negative); Blood Urine 3+ (Negative); Glucose Urine UA Norm (Normal); Ketones Urine Negative (Negative); Leukocyte Esterase Urine 2+ (Negative); Nitrate Urine Positive (Negative); Protein Urine Neg (Negative); Urine Appearance Hazy (CLEAR); Urine Color Yellow (Yellow); Urobilinogen Urine Norm (Negative); pH Urine 5 (5-7)
[2023-04-23 13:33] LABS: Add Urine Culture? Yes; Bacteria Urine 2+ /hpf; Squamous Epithelial Cell Urine 0-4 /hpf (0-5); WBC Urine 15-25 /hpf (0-5)
--- NOTE | 2023-04-23 16:22 | CTR_ITS ---
PROCEDURE INFORMATION: Exam: CT Abdomen And Pelvis With Contrast Exam date and time: 04/23/2023 5:01 PM Age: 83 years old Clinical indication: Nausea and vomiting; Prior surgery; Surgery date: 6+ months; Surgery type: L-spine; Additional info: Abdominal pain/nausea/vomiting TECHNIQUE: Imaging protocol: Computed tomography of the abdomen and pelvis with contrast. Radiation optimization: All CT scans at this facility use at least one of these dose optimization techniques: automated exposure control; mA and/or kV adjustment per patient size (includes targeted exams where dose is matched to clinical indication); or iterative reconstruction. Contrast material: OMNI 530; Contrast volume: 100 ml; Contrast route: INTRAVENOUS (IV); REPORTING DATA: Count of CT and Cardiac NM exams in prior 12 months: This patient has received 4 known CTs and 0 known cardiac nuclear medicine studies in the 12 months prior to the current study. COMPARISON: US renal BI* [id number] 03/23/2023 3:19 PM RADIATION DOSE METRICS: Total DLP (mGy-cm): 391 FINDINGS: Lungs: Punctate calcified granulomas at the lung bases. Liver: The liver is unremarkable in appearance. Gallbladder and bile ducts: No calcified gallstones in the gallbladder. No gallbladder wall thickening. No pericholecystic fluid. No biliary dilatation. Pancreas: Unremarkable. No ductal dilation. Spleen: Single punctate calcified granuloma in the spleen. No splenomegaly. Adrenal glands: Unremarkable. No mass. Kidneys and ureters: Right kidney demonstrates a 10 mm simple appearing cyst. No solid renal masses. No hydronephrosis. Stomach and bowel: No acute gastric abnormality demonstrated. The small bowel is unremarkable as demonstrated. No acute abnormality/inflammatory change of the colon. Appendix: No evidence of appendicitis. Intraperitoneal space: No free air. No significant fluid collection. Vasculature: The aorta is atherosclerotic. No aortic aneurysm. Lymph nodes: No pathologically enlarged lymph nodes. Urinary bladder: The urinary bladder is unremarkable in appearance. Reproductive: Unremarkable as visualized. Bones/joints: Postop changes of the lumbar spine. No acute osseous abnormality. Soft tissues: The soft tissues are unremarkable as demonstrated. CT/CT abdomen pelvis w con* [id number] IMPRESSION: No acute abnormality demonstrated in the abdomen and pelvis. COMMENTS: Consistent with the [employer]'s Incidental Findings Committee white paper (J Am Jigar Radiol 2018): Any incidental renal lesion less than 1 cm or classified as too small to characterize, or any incidental cystic renal lesion characterized as simple-appearing, is likely benign. No follow-up imaging is recommended for these lesions per consensus recommendations based on imaging criteria.
[2023-04-23] MEDS: iohexol 350 mg/mL 500 mL Btl (per mL) IV (17:34)
--- NOTE | 2023-04-23 17:35 | P.HP_ITS ---
Providers/Chief Complaint Admitting Physician: Jack Cheung MD Primary Care Provider: Ramila Ahumada Chief Complaint: UTI History of Present Illness Geeta Hudson is a 83 year old female with past medical history of cystitis, hypertension, diastolic dysfunction who was recently in hospital last month and was treated for E. coli ESBL UTI/possible pyelonephritis with prolonged course of IV antibiotics and was sent home on oral Bactrim both to complete the course of antibiotics for the infection at that time along with as a pill in the box strategy. After the patient after completing the course she was doing absolutely fine and was her at her baseline health 2 days ago when she started having some dysuria along with difficulty in urination. Today morning when she woke up she was feeling extremely weak, nauseous and was having more difficulty in urination. Patient has taken 3 more tablets of Bactrim since then without any improvement hence decided to come to the hospital. Review of Systems General: Reports: 10 or more systems reviewed and unremarkable except in HPI and below Const: Denies: fever(s), chills, body aches, change in appetite, change in weight, malaise, night sweats, diaphoresis, change in sleep pattern, daytime sleepiness or snoring Eyes: Denies: change in vision, blurry vision, photophobia, eye discomfort or eye discharge ENMT: Denies: throat pain, enlarged tonsils, hoarseness, mouth pain, oral sores, dry mouth, tinnitus, nasal congestion or post nasal drip Card: Denies: chest pain, palpitations, irregular heart rhythm, edema, s welling of feet/ankles, lightheadedness, syncope, pre-syncope, dyspnea on exertion, orthopnea, leg pain with exertion or acrocyanosis Resp: Denies: dyspnea, productive cough, non-productive cough, wheezing, stridor, pain on inspiration, change in phlegm color, hemoptysis or chest congestion GI: Denies: abdominal pain, nausea, vomiting, hematemesis, coffee ground emesis, dysphagia, heartburn, diarrhea, constipation, bloating, GI cramping, change in bowel habits, pain on defecation, hematochezia or melena : Denies: flank pain, dysuria, urinary frequency, urinary urgency, urinary hesitancy, nocturia or hematuria Musc: Denies: neck pain, back pain, extremity pain, joint pain, joint swelling, joint redness, joint stiffness or limited range of motion Neuro: Denies: headache(s), numbness in extremities, weakness in extremities, sensory changes, lack of coordination, difficulty walking, frequent falls, dizziness, vertigo, confusion, Slurred speech present, difficulty communicating thoughts or seizure-like activity Psych: Denies: anxiety, depression, mood swings, panic attacks, hopelessness or irritability Endo: Denies: polyuria, polydipsia, tired all the time, cold intolerance, excessive sweating, flushing or heat intolerance Fadi/Lymph: Denies: easy bruising or easy bleeding All/Imm: Denies: tongue swelling, facial swelling or acute wheezing Medications/Allergies Home Medications Medication Instructions Recorded Confirmed Last Taken Type clopidogrel 75 mg tablet 75 mg PO QAM 04/30/22 04/23/23 04/23/23 History labetalol 200 mg tablet 200 mg PO BID 04/30/22 04/23/23 03/22/23 History sulfamethoxazole 800 1 tab PO BID PRN UTI 5 days #10 03/28/23 04/23/23 04/23/23 Rx mg-trimethoprim 160 mg tablet tabs took ~3-4 (Bactrim DS) tabs so fa acetaminophen 500 mg tablet 1,000 mg PO Q6H PRN Pain 04/23/23 04/23/23 04/22/23 History amlodipine 10 mg tablet 10 mg PO QAM 04/23/23 04/23/23 04/23/23 History cyanocobalamin (vitamin B-12) 1,000 mcg PO QAM 04/23/23 04/23/23 04/23/23 History 1,000 mcg tablet (Vitamin B-12) diphenhydramine 25 0.5 tab PO BEDTIME 04/23/23 04/23/23 04/22/23 History mg-acetaminophen 500 mg tablet (Tylenol PM Extra Strength) lisinopril 20 1 tab PO QAM 04/23/23 04/23/23 04/23/23 History mg-hydrochlorothiazide 12.5 mg tablet loratadine 10 mg tablet (Claritin) 10 mg PO DAILY PRN Allergy Symptoms 04/23/23 04/23/23 Unknown History Allergies Allergy/AdvReac Type Severity Reaction Status Date / Time No Known Allergies Allergy Verified 04/23/23 12:40 PFSH Acute PFSH: Medical History (Updated 04/23/23 @ 17:55 by Jack Cheung MD) Diastolic dysfunction without heart failure History of CVA (cerebrovascular accident) Hypertension Urinary tract infection due to extended-spectrum beta lactamase (ESBL) producing Escherichia coli Surgical History History of back surgery Family History (Updated 03/22/23 @ 15:19 by Salinas Rasheed MD) Father Stroke Social History (Updated 03/22/23 @ 15:19 by Salinas Rasheed MD) Smoking and tobacco status: never smoked Alcohol intake: never Substance/Drug Use: never Vitals/I&O/Wt Last Vital Signs Temp 98.6 F 04/23/23 11:26 Pulse 96 04/23/23 11:26 Resp 18 04/23/23 11:26 BP 146/81 04/23/23 11:26 Pulse Ox 94 04/23/23 11:26 O2 Del Method Room Air 04/23/23 11:26 Weight last 48 hrs Weight 63.503 kg Physical Exam Narrative: General: No acute distress, AO x3, pleasant, weak appearing HEENT: PERRLA, pupils bilaterally equal and reactive Chest: Normal vesicular breath sounds, no added sounds, equal good air entry bilaterally CVS: S1-S2 regular, no murmurs, no tachycardia, no gallops, no rubs Abdomen: Soft, nontender, no organomegaly, bowel sounds present, mild tenderness in left flank Neuro: No focal deficits, no facial deformity, AO x3, power 5/5 in all limbs Data 04/24/23 05:39 04/24/23 05:39 Micro: Microbiology 04/23/23 12:12 Blood Culture - Preliminary Blood SPECIMEN COLLECTED 04/23/23 12:05 Blood Culture - Preliminary Blood SPECIMEN COLLECTED A&P Assessment and plan (1) Urinary tract infection due to extended-spectrum beta lactamase (ESBL) producing Escherichia coli: History of UTI with ESBL E. coli. Sensitive to imipenem and Bactrim. Failure to outpatient treatment with Bactrim. Check blood culture, urine culture, CT abdomen pelvis to rule out obstructive nephropathy. Start on imipenem empirically for now. (2) Acute hyponatremia: Most likely in setting of dehydration along with nausea and vomiting. IV hydration with normal saline at 75 cc/h. Patient has history of diastolic dysfunction. Will watch for fluid overload. Check urine lites. Monitor in AM. (3) Nausea & vomiting: Zofran as needed, Protonix 40 mg daily. Clear liquid diet. (4) RAOUL (acute kidney injury): Insetting of UTI and dehydration from nausea and vomiting and poor oral intake. Fluid as above. Medical reconciliation done for nephrotoxic drugs. For now continue with home dose of lisinopril and hydrochlorothiazide. Strict input output charting. (5) Failure of outpatient treatment: Plan Hypertension: Goal blood pressure less than 140/90 mmHg. Continue with home dose of amlodipine, lisinopril and hydrochlorothiazide. Will uptitrate as for goal blood pressure. Full code Clear liquid diet Protonix for PUD prophylaxis Heparin 5000 every 8 hourly for DVT prophylaxis. Attestations Medical Necessity Statement*: Admission for within 2 midnights for management of complicated UTI with history of ESBL E. coli UTI, acute kidney injury and hyponatremia in setting of dehyd ration from poor oral intake and nausea vomiting Diagnoses Urinary tract infection due to extended-spectrum beta lactamase (ESBL) producing Escherichia coli N39.0; B96.29; Z16.12 Acute hyponatremia E87.1 Nausea & vomiting R11.2 RAOUL (acute kidney injury) N17.9 Failure of outpatient treatment Z78.9
[2023-04-23 17:54] VITALS: BP 122/69; PULSE 96; RESP 16; TEMP 36.7; O2SAT 94
[2023-04-23 18:12] VITALS: O2SAT 95
[2023-04-23] MEDS: sodium chloride 0.9% 1,000 ML 100 ML IV (18:17)
[2023-04-23] MEDS: heparin 5,000 unit/mL INJ 1 mL 5000 UNIT SUBCUT (18:17)
[2023-04-23] MEDS: labetalol 200 mg Tablet PO (18:21)
[2023-04-23 19:01] LABS: Thyroid Stimulating Hormone 1.07 uIU/mL (0.27-4.20)
[2023-04-23 19:12] LABS: Iron 22 ug/dL (37-145); Total Iron Binding Capacity 200 mcg/dl; Unsaturated Iron Binding 178 ug/dL (112-347)
[2023-04-23 19:43] VITALS: BP 94/51; PULSE 76; RESP 16; TEMP 36.9; O2SAT 91
[2023-04-23 22:00] VITALS: PULSE 78
[2023-04-24] VITALS (9 sets, daily range): BP systolic 92–148; BP diastolic 50–69; PULSE 72–93; RESP 16–18; TEMP 36.8–37.2; O2SAT 93–95
--- NOTE | 2023-04-24 00:37 | PC.NURSE ---
Patient hit her call light and stated that her right hand was numb and that she feels like she is having a stroke. NIHSS performed and score was 0. Dr. Rasheed notified. No new orders.
[2023-04-24] MEDS: sodium chloride 0.9% 1,000 ML 100 ML IV ×2 (03:57→17:25)
[2023-04-24 04:42] LABS: Add Urine Microscopic? YES; Bilirubin Urine Neg (Negative); Blood Urine 2+ (Negative); Glucose Urine UA Norm (Normal); Ketones Urine Negative (Negative); Leukocyte Esterase Urine 2+ (Negative); Nitrate Urine Positive (Negative); Protein Urine Trace (Negative); Urine Appearance Hazy (CLEAR); Urine Color Yellow (Yellow); Urobilinogen Urine Neg (Negative); pH Urine 5 (5-7)
[2023-04-24 04:43] LABS: Add Urine Culture? Yes; Bacteria Urine TRACE /hpf; Transitional Epi Cells Urine 0-4 /hpf; WBC Urine 55-80 /hpf (0-5)
[2023-04-24 04:53] LABS: Potassium, Radom Urine 45 mmol/L; Urine Creatinine 92 mg/dL (28-217); Urine Random Chloride 44 mmol/L; Urine Random Sodium 59 mmol/L
--- NOTE | 2023-04-24 05:44 | PC.PHAR ---
Renal dosing of Primaxin 500mg IVPB q6h decreased to 250mg IVPB Q8H due to patient crcl of 36 and patient weight 63kg. Thank you, Nora Chao h
--- NOTE | 2023-04-24 05:52 | PC.NURSE ---
Patient's blood pressure 94/50. Dr. Rasheed notified. Ordered to non-admin Lisinopril, Hydrochlorothiazide, and Amlodipine that is due at this time.
[2023-04-24] MEDS: clopidogrel 75 mg Tablet PO (05:57)
[2023-04-24] MEDS: heparin 5,000 unit/mL INJ 1 mL 5000 UNIT SUBCUT ×2 (05:57→17:26)
[2023-04-24 06:10] LABS: Basophils % 0.4 %; Eosinophils # 0.7 10^3/uL (0.0-0.8); Eosinophils % 7.7 %; Hematocrit 30.1 % (36-47); Lymphocytes % 12.3 %; Mean Corpuscular HGB Conc 34.2 g/dL (30-55); Mean Corpuscular Hemoglobin 30.9 pg (27-33); Mean Corpuscular Volume 90.4 fl (85-98); Mean Platelet Volume 9.2 fL (7.4-10.4); Monocytes # 0.8 10^3/uL (0.2-0.9); Monocytes % 9.2 %; Neutrophils % 70.2 %; Nucleated Red Blood Cells % 0 %; Platelet Count 187 10^3/cmm (157-399); Red Blood Count 3.33 10^6/uL (3.85-5.65); Red Cell Distribution Width 13.2 % (12.1-15.1)
[2023-04-24 06:35] LABS: Alanine Aminotransferase 6 U/L (0-33); Albumin Level 3.3 g/dL (3.5-5.2); Alkaline Phosphatase 48 U/L (35-105); Anion Gap 15.6 (5-19); Aspartate Amino Transferase 11 U/L (0-32); Blood Urea Nitrogen 18 mg/dL (8-23); Calcium 8.3 mg/dL (8.5-10.5); Carbon Dioxide 21 mmol/L (22-29); Chloride 97 mmol/L (98-107); Globulin 2.4 g/dL (1.3-4.6); Glucose 123 mg/dL (65-115); Magnesium 1.8 mg/dL (1.7-2.3); Osmolality Calculated 273 mOsm/kg (285-295); Phosphorus 2.9 mg/dL (2.5-4.5); Potassium 3.6 mmol/L (3.5-5.1); Sodium 130 mmol/L (136-145); Total Bilirubin 0.4 mg/dL (0.15-1.2); Total Protein 5.7 g/dL (6.6-8.7)
[2023-04-24 06:38] LABS: Chol HDL Ratio 3.98 mg/dL (0.0-4.40); Cholesterol 191 mg/dL (0-200); HDL Cholesterol 48 mg/dL (60-100); LDL Cholesterol Calculated 118 mg/dL (50-129); LDL HDL Ratio 2.46 RATIO (0.00-3.22); Triglycerides 127 mg/dL (0-150)
[2023-04-24 06:41] LABS: Estmated Average Glucose 126
[2023-04-24 06:44] LABS: Procalcitonin 0.27 ng/mL (0-0.5)
[2023-04-24 06:54] LABS: Folate Level 5.9 ng/mL (4.8-37.3)
--- NOTE | 2023-04-24 10:38 | PC.CHAP ---
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 [] Patient/Family/Request visit [] Outpatient visit [] Follow-up visit [] Physician referral [] Code/Alert [] Routine visit [] Staff referral [] Actively dying [] Patient sleeping [] Family support [] [] Out of room [] Palliative care [] [] Receiving care in room [] Pre-surgical visit [] Trauma [] Long length of stay [] ICU visit [x] Other: Islation Relational/Emotional Strength [] Patient feels connected with others/family/visitors/staff [] Distress [] Loneliness/isolation [] Abandonment Spirituality of Patient [] Person of Gabrielle [] Attends Hinduism of their Gabrielle [] Believes in Prayer [] Reads Bible or Orthodoxy materials [] There are Spiritual issues to be addressed [employer] Interventions [] Prayer [] Active listening [] Non-anxious presence [] Spiritual/emotional support [] Crisis/trauma care [] Spiritual counseling [] Bereavement support [] Provided bereavement packet [] Provided Bible/devotional materials [] Provided toy/stuffed animal, coloring book to patient or family member [] Provided Communion [] Anointing/[place] [] Salvation [] Completed spiritual assessment [] Other: Impact on Illness or Injury [] Angry [] Fearful [] Anxious [] Often cries [] Exhaustion [] Unable to work [] Unable to attend mormonism [] Unable to walk/stand [] Unable to read [] Unable to drive [] Unable to eat/drink [] Unable to sleep [] Unable to be with family [] Patient intubated [] Other: Summary Islation Time spent with patient 5 mins
[2023-04-24 10:44] LABS: Bacillus cereus group Not Detected (NOT DETECT); Bacillus subtillis group Not Detected (NOT DETECT); Corynebacterium Not Detected (NOT DETECT); Cutibacterium acnes (P.acnes) Not Detected (NOT DETECT); Enterococcus Not Detected (NOT DETECT); Enterococcus faecalis Not Detected (NOT DETECT); Enterococcus faecium Not Detected (NOT DETECT); Lactobacillus species Not Detected (NOT DETECT); Listeria Not Detected (NOT DETECT); Listeria monocytogenes Not Detected (NOT DETECT); Micrococcus Not Detected (NOT DETECT); Pan Candida Not Detected (NOT DETECT); Pan Gram-Negative Not Detected (NOT DETECT); Staphylococcus epidermidis Not Detected (NOT DETECT); Staphylococcus lugdunensis Not Detected (NOT DETECT); Staphylococcus species Not Detected (NOT DETECT); Streptococcus agalactiae Not Detected (NOT DETECT); Streptococcus anginosus group Not Detected (NOT DETECT); Streptococcus pneumoniae Not Detected (NOT DETECT); Streptococcus pyogenes Not Detected (NOT DETECT); Streptococcus species Detected (NOT DETECT)
[2023-04-24] MEDS: sodium chloride 0.9% 500 ML IV (12:10)
--- NOTE | 2023-04-24 13:12 | PM.PN ---
Subjective Subjective: No acute events overnight. Patient states she feels better now than what she did when she came in. Blood pressures overnight have been on the softer side. As per the patient she has labetalol on the medication list but she has not been taking it for last 1 month or so because of blood pressures. Patient did get a dose of labetalol yesterday evening. Family at bedside. Patient herself denies any nausea. Asking her diet to be advanced if possible. Blood work shows resolution of leukocytosis, hemoglobin of 10.3 from 12.5 on admission, hyponatremia slightly improving with sodium at 130, creatinine improving to 0.9. Vitals/I&O/Wt Last Vital Signs Temp 98.4 F 04/24/23 12:00 Pulse 77 04/24/23 12:00 Resp 16 04/24/23 12:00 BP 127/64 04/24/23 12:00 Pulse Ox 93 04/24/23 12:00 O2 Del Method Room Air 04/24/23 04:48 04/23/23 04/24/23 04/24/23 22:59 06:59 14:59 Intake Total 340 / 340 1166.667 / 1506.667 240 / 240 Output Total 200 / 200 Balance 340 / 340 966.667 / 1306.667 240 / 240 Weight last 48 hrs Weight 69.944 kg Weight 63.503 kg Physical Exam Narrative: General: No acute distress, AO x3, pleasant, weak appearing HEENT: PERRLA, pupils bilaterally equal and reactive Chest: Normal vesicular breath sounds, no added sounds, equal good air entry bilaterally CVS: S1-S2 regular, no murmurs, no tachycardia, no gallops, no rubs Abdomen: Soft, nontender, no organomegaly, bowel sounds present, mild tenderness in left flank Neuro: No focal deficits, no facial deformity, AO x3, power 5/5 in all limbs Data 04/24/23 05:39 04/24/23 05:39 Micro: Microbiology 04/24/23 11:58 Blood Culture - Preliminary Blood SPECIMEN COLLECTED 04/24/23 11:54 Blood Culture - Preliminary Blood SPECIMEN COLLECTED 04/23/23 12:05 Blood Culture - Preliminary Blood NEGATIVE TO DATE 04/23/23 12:12 Blood Culture - Preliminary Blood Streptococcus species 04/23/23 13:08 Urine Culture - Preliminary Urine,Clean Catch Gram Negative Rods A&P Assessment and plan (1) Urinary tract infection due to extended-spectrum beta lactamase (ESBL) producing Escherichia coli: History of UTI with ESBL E. coli. Sensitive to imipenem and Bactrim. Failure to outpatient treatment with Bactrim. Urine culture growing gram-negative rods. Blood culture growing strep species 1 out of 4 bottles. Could be contaminant. Repeat blood culture. CT abdomen pelvis ruled out obstructive nephropathy. Continue with empiric imipenem for now. The patient remains hemodynamically stable and afebrile for next 24 hours most likely can discharge on IV or ertapenem for overall 7-day course. (2) Acute hyponatremia: Resolving. Most likely in setting of dehydration along with nausea and vomiting. Continue with IV hydration with normal saline at 75 cc/h. Patient has history of diastolic dysfunction. Will watch for fluid overload. Monitor in AM. (3) Nausea & vomiting: Zofran as needed, Protonix 40 mg daily. Advance to regular diet (4) RAOUL (acute kidney injury): Resolved. Insetting of UTI and dehydration from nausea and vomiting and poor oral intake. Fluid as above. Medical reconciliation done for nephrotoxic drugs. Strict input output charting. (5) Failure of outpatient treatment: Plan Hypertension: Goal blood pressure less than 140/90 mmHg. Blood pressure soft today. Keep mean artery pressure 65. Hold off on home dose of antihypertensives for now including amlodipine, hydrochlorothiazide and lisinopril. As per family member at home also patient has been having soft blood pressures. Not taking labetalol anymore. DC labetalol. Most likely will discharge patient on oral amlodipine with advised to monitor blood pressures at home and use hydralazine 25 mg twice daily as needed for systolic blood pressure of more than 150 mmHg. Full code Advance to regular diet Protonix for PUD prophylaxis Heparin 5000 every 8 hourly for DVT prophylaxis. Attestations Medical Necessity Statement*: Requires further hospitalization for management of complicated cystitis/pyelonephritis in a patient with history of recent E. coli ESBL pyelonephritis, hypotension, hyponatremia Diagnoses Urinary tract infection due to extended-spectrum beta lactamase (ESBL) producing Escherichia coli N39.0; B96.29; Z16.12 Acute hyponatremia E87.1 Nausea & vomiting R11.2 RAOUL (acute kidney injury) N17.9 Failure of outpatient treatment Z78.9
[2023-04-24] MEDS: acetaminophen 325 mg Tablet 650 MG PO (21:21)
[2023-04-25 03:46] VITALS: BP 137/62; PULSE 70; RESP 16; TEMP 36.6; O2SAT 93
[2023-04-25] MEDS: sodium chloride 0.9% 1,000 ML 100 ML IV (03:46)
[2023-04-25 05:15] LABS: Basophils % 0.5 %; Eosinophils # 1.1 10^3/uL (0.0-0.8); Eosinophils % 19.1 %; Hematocrit 32.2 % (36-47); Lymphocytes # 1.7 10^3/uL (0.8-4.8); Lymphocytes % 29.9 %; Mean Corpuscular HGB Conc 34.5 g/dL (30-55); Mean Corpuscular Hemoglobin 31.2 pg (27-33); Mean Corpuscular Volume 90.4 fl (85-98); Mean Platelet Volume 9.2 fL (7.4-10.4); Monocytes # 0.6 10^3/uL (0.2-0.9); Monocytes % 11.3 %; Neutrophils # 2.15 10^3/uL (1.8-7.7); Nucleated Red Blood Cells % 0 %; Platelet Count 209 10^3/cmm (157-399); Red Blood Count 3.56 10^6/uL (3.85-5.65); White Blood Count 5.51 10^3/uL (3.29-11.43)
[2023-04-25] MEDS: acetaminophen 325 mg Tablet 650 MG PO (05:30)
[2023-04-25] MEDS: clopidogrel 75 mg Tablet PO (05:30)
[2023-04-25] MEDS: heparin 5,000 unit/mL INJ 1 mL 5000 UNIT SUBCUT (05:30)
[2023-04-25 05:33] LABS: Alanine Aminotransferase 8 U/L (0-33); Albumin Level 3.8 g/dL (3.5-5.2); Alkaline Phosphatase 51 U/L (35-105); Anion Gap 12.6 (5-19); Aspartate Amino Transferase 12 U/L (0-32); Blood Urea Nitrogen 11 mg/dL (8-23); Calcium 8.7 mg/dL (8.5-10.5); Carbon Dioxide 25 mmol/L (22-29); Chloride 103 mmol/L (98-107); Globulin 2.7 g/dL (1.3-4.6); Glucose 102 mg/dL (65-115); Osmolality Calculated 284 mOsm/kg (285-295); Potassium 3.6 mmol/L (3.5-5.1); Sodium 137 mmol/L (136-145); Total Bilirubin 0.2 mg/dL (0.15-1.2); Total Protein 6.5 g/dL (6.6-8.7)
[2023-04-25 06:00] VITALS: PULSE 74
[2023-04-25 08:19] VITALS: BP 167/73; PULSE 65; RESP 18; TEMP 36.4; O2SAT 96
--- NOTE | 2023-04-25 09:25 | P.DS_ITS ---
Discharge Providers Date of Admission: 04/23/23 17:30 Date of Discharge: April 25, 2023 Attending Provider at Admission: Jack Cheung MD Attending Provider at Discharge: Jack Cheung MD Primary Care Provider: Ramila Ahumada Diagnoses at Discharge Discharge Diagnosis (1) Urinary tract infection due to extended-spectrum beta lactamase (ESBL) producing Escherichia coli: Status: Acute (2) Acute hyponatremia: Status: Acute (3) Nausea & vomiting: Status: Acute (4) RAOUL (acute kidney injury): Status: Acute (5) Failure of outpatient treatment: Status: Acute Reason for Visit Reason for Visit: UTI Hospital Course Hospital Course Geeta Hudson is a 83 year old female with past medical history of cystitis, hypertension, diastolic dysfunction who was recently in hospital last month and was treated for E. coli ESBL UTI/possible pyelonephritis with prolonged course of IV antibiotics and was sent home on oral Bactrim both to complete the course of antibiotics for the infection at that time along with as a pill in the box strategy.? After the patient after completing the course she was doing absolutely fine and was her at her baseline health 2 days ago when she started having some dysuria along with difficulty in urination.? Today morning when she woke up she was feeling extremely weak, nauseous and was having more difficulty in urination.? Patient has taken 3 more tablets of Bactrim since then without any improvement hence decided to come to the hospital. 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 coli cystitis with concern for hyponatremia leading to weakness. She was started on IV antibiotics, IV fluids and home antihypertensives on admission were withheld. She responded well to the treatment and her sodium levels have come back normal. Patient's symptoms have resolved as well. During hospitalization she also had 1 out of 4 blood cultures positive for Streptococcus which is most likely a contaminant. Repeat blood cultures were sent and was so far negative. We will continue to follow the blood cultures while patient is discharged. Given recurrent UTI with failure to outpatient treatment decision was made to treat ESBL pyelonephritis for overall 10-day course now with advice to continue ertapenem 1 g daily for next 7 days. Midline has been placed. Midline should be removed after completion of the course of antibiotics. CBC and CMP to be done after completion of treatment. For high blood pressure, as per family patient's blood pressures lately have been running on the lower side for which some antihypertensives in the past were discontinued. Also gives history of occasional high blood pressure of more than 150 systolic which is once or twice every few months. She has been discharged on 10 mg of oral amlodipine with advised to take 25 mg of hydralazine twice daily as needed for systolic blood pressure of more than 150 mmHg. Physical Exam Narrative: General: No acute distress, AO x3, pleasant, weak appearing HEENT: PERRLA, pupils bilaterally equal and reactive Chest: Normal vesicular breath sounds, no added sounds, equal good air entry bilaterally CVS: S1-S2 regular, no murmurs, no tachycardia, no gallops, no rubs Abdomen: Soft, nontender, no organomegaly, bowel sounds present, mild tenderness in left flank Neuro: No focal deficits, no facial deformity, AO x3, power 5/5 in all limbs Discharge Data Studies Completed and Pending Completed Studies During Hospitalization Category Date Time Status CT abdomen pelvis w con* [id number] Stat Cat Scan 04/23/23 16:22 Completed Pending at discharge Category Date Time Status B12 [Vitamin B12] Routine Lab 04/23/23 18:10 Results Blood Culture Stat Lab 04/23/23 12:12 Results Blood Culture Stat Lab 04/24/23 11:58 Results Procalcitonin Stat Lab 04/23/23 18:10 Results TIBC [Total Iron Binding Capacity] Routine Lab 04/23/23 18:10 Results Thyroid Stimulating Hormone Routine Lab 04/23/23 18:10 Results Urine Culture Routine Lab 04/24/23 04:25 Received Urine Culture Stat Lab 04/23/23 13:08 Results Radiology Impressions Abdomen/Pelvis CT 04/23/23 16:22 IMPRESSION: No acute abnormality demonstrated in the abdomen and pelvis. COMMENTS: Consistent with the [employer]'s Incidental Findings Committee white paper (J Am Jigar Radiol 2018): Any incidental renal lesion less than 1 cm or classified as too small to characterize, or any incidental cystic renal lesion characterized as simple-appearing, is likely benign. No follow-up imaging is recommended for these lesions per consensus recommendations based on imaging criteria. Microbiology 04/23/23 13:08 Urine,Clean Catch Urine Culture - Final Escherichia coli esbl 04/24/23 11:58 Blood Blood Culture - Preliminary SPECIMEN COLLECTED 04/24/23 11:54 Blood Blood Culture - Preliminary SPECIMEN COLLECTED 04/23/23 12:05 Blood Blood Culture - Preliminary NEGATIVE TO DATE 04/23/23 12:12 Blood Blood Culture - Preliminary Streptococcus species Laboratory Results WBC 5.51 10^3/uL (3.29-11.43) 04/25/23 05:05 RBC 3.56 10^6/uL (3.85-5.65) L 04/25/23 05:05 Hgb 11.10 g/dL (11.27-16.99) L 04/25/23 05:05 Hct 32.2 % (36-47) L 04/25/23 05:05 MCV 90.4 fl (85-98) 04/25/23 05:05 MCH 31.2 pg (27-33) 04/25/23 05:05 MCHC 34.5 g/dL (30-55) 04/25/23 05:05 RDW 13.0 % (12.1-15.1) 04/25/23 05:05 Plt Count 209 10^3/cmm (157-399) 04/25/23 05:05 MPV 9.2 fL (7.4-10.4) 04/25/23 05:05 Neut % (Auto) 39.0 % 04/25/23 05:05 Lymph % (Auto) 29.9 % 04/25/23 05:05 [place] % (Auto) 11.3 % 04/25/23 05:05 Eos % (Auto) 19.1 % 04/25/23 05:05 Baso % (Auto) 0.5 % 04/25/23 05:05 Neut # (Auto) 2.15 10^3/uL (1.8-7.7) 04/25/23 05:05 Lymph # (Auto) 1.7 10^3/uL (0.8-4.8) 04/25/23 05:05 [place] # (Auto) 0.6 10^3/uL (0.2-0.9) 04/25/23 05:05 Eos # (Auto) 1.1 10^3/uL (0.0-0.8) H 04/25/23 05:05 Baso # (Auto) 0.0 10^3/uL (0.0-0.1) 04/25/23 05:05 Nucleated RBC % (auto) 0 % 04/25/23 05:05 Nucleated RBCs # 0.0 /100WBC 04/25/23 05:05 Sodium 137 mmol/L (136-145) 04/25/23 05:05 Potassium 3.6 mmol/L (3.5-5.1) 04/25/23 05:05 Chloride 103 mmol/L (98-107) 04/25/23 05:05 Carbon Dioxide 25 mmol/L (22-29) 04/25/23 05:05 Anion Gap 12.6 (5-19) 04/25/23 05:05 BUN 11 mg/dL (8-23) 04/25/23 05:05 Creatinine 0.7 mg/dL (0.5-0.9) 04/25/23 05:05 GFR Calculation Not Reportable 04/25/23 05:05 Glucose 102 mg/dL (65-115) 04/25/23 05:05 Estimat Average Glucose 126 04/24/23 05:39 Hemoglobin A1c 6.0 % (4.0-6.0) 04/24/23 05:39 Calculated Osmolality 284 mOsm/kg (285-295) L 04/25/23 05:05 Lactic Acid 1.7 mmol/L (0.5-2.2) 04/23/23 12:05 Calcium 8.7 mg/dL (8.5-10.5) 04/25/23 05:05 Phosphorus 2.9 mg/dL (2.5-4.5) 04/24/23 05:39 Magnesium 1.8 mg/dL (1.7-2.3) 04/24/23 05:39 Iron 22 ug/dL (37-145) L 04/23/23 18:10 TIBC 200 mcg/dl 04/23/23 18:10 % Saturation 11.0 % (20-50) L 04/23/23 18:10 Unsat Iron Binding 178 ug/dL (112-347) 04/23/23 18:10 Total Bilirubin 0.2 mg/dL (0.15-1.2) 04/25/23 05:05 AST 12 U/L (0-32) 04/25/23 05:05 ALT 8 U/L (0-33) 04/25/23 05:05 Alkaline Phosphatase 51 U/L (35-105) 04/25/23 05:05 Total Protein 6.5 g/dL (6.6-8.7) L 04/25/23 05:05 Albumin 3.8 g/dL (3.5-5.2) 04/25/23 05:05 Globulin 2.7 g/dL (1.3-4.6) 04/25/23 05:05 Triglycerides 127 mg/dL (0-150) 04/24/23 05:39 Cholesterol 191 mg/dL (0-200) 04/24/23 05:39 LDL Cholesterol, Calc 118 mg/dL (50-129) 04/24/23 05:39 HDL Cholesterol 48 mg/dL (60-100) L 04/24/23 05:39 LDL/HDL Ratio 2.46 RATIO (0.00-3.22) 04/24/23 05:39 Cholesterol/HDL Ratio 3.98 mg/dL (0.0-4.40) 04/24/23 05:39 Folate 5.9 ng/mL (4.8-37.3) 04/24/23 05:39 Procalcitonin 0.27 ng/mL (0-0.5) 04/24/23 05:39 TSH 1.07 uIU/mL (0.27-4.20) 04/23/23 18:10 Urine Color Yellow (Yellow) 04/24/23 04:25 Urine Appearance Hazy (CLEAR) A 04/24/23 04:25 Urine pH 5 (5-7) 04/24/23 04:25 Ur Specific [place] 1.010 (1.005-1.030) 04/24/23 04:25 Urine Protein Trace (Negative) 04/24/23 04:25 Urine Glucose (UA) Norm (Normal) 04/24/23 04:25 Urine Ketones Negative (Negative) 04/24/23 04:25 Urine Blood 2+ (Negative) H 04/24/23 04:25 Urine Nitrate Positive (Negative) H 04/24/23 04:25 Urine Bilirubin Neg (Negative) 04/24/23 04:25 Urine Urobilinogen Neg mg/dL (Negative) 04/24/23 04:25 Ur Leukocyte Esterase 2+ (Negative) H 04/24/23 04:25 Urine RBC 5-10 /hpf (0-2) H 04/24/23 04:25 Urine WBC 55-80 /hpf (0-5) H 04/24/23 04:25 Ur Squamous Epith Cells None /hpf (0-5) 04/24/23 04:25 Ur Transition Epith Cell 0-4 /hpf 04/24/23 04:25 Amorphous Sediment Not Reportable 04/24/23 04:25 Urine Bacteria Trace /hpf (NONE) 04/24/23 04:25 Urine Mucus None /hpf 04/23/23 13:08 Ur Random Sodium 59 mmol/L 04/24/23 04:25 Ur Random Potassium 45 mmol/L 04/24/23 04:25 Ur Random Chloride 44 mmol/L 04/24/23 04:25 Urine Creatinine 92 mg/dL (28-217) 04/24/23 04:25 Vitals Last Vital Signs Temp 97.5 F L 04/25/23 08:19 Pulse 65 04/25/23 08:19 Resp 18 04/25/23 08:19 BP 167/73 04/25/23 08:19 Pulse Ox 96 04/25/23 08:19 O2 Del Method Room Air 04/25/23 08:19 Discharge Plan Discharge Patient Disposition: Home Condition: Stable Prescriptions: New hydralazine 25 mg tablet 25 mg PO BID PRN (Reason: sbp more than 150 mmhg) Qty: 14 0RF Continued clopidogrel 75 mg tablet 75 mg PO QAM sulfamethoxazole-trimethoprim [Bactrim DS] 800-160 mg tablet 1 tab PO BID PRN (Reason: UTI) 5 Days Qty: 10 5RF Vitamin B-12 1,000 mcg Tablet 1,000 mcg PO QAM Tylenol Ex Str Rapid Release 500 mg Tablet 1,000 mg PO Q6H PRN (Reason: Pain) Tylenol PM Extra Strength 25-500 mg Tablet 0.5 tab PO BEDTIME Claritin 10 mg Tablet 10 mg PO DAILY PRN (Reason: Allergy Symptoms) amlodipine 10 mg tablet 10 mg PO QAM Discontinued labetalol 200 mg tablet 200 mg PO BID Hold Instructions: Resume on 04/11/23. Rx Instructions: (MED ON HOLD PER PT 04/23/23) lisinopril-hydrochlorothiazide 20-12.5 mg tablet 1 tab PO QAM Discharge Orders: Discharge Order (Routine); Ordered 04/25/23 Ordered By: Jack Cheung Other Ambulatory Orders: Miscellaneous Procedure (Order) Location: None Selected Ordered By: Jack Cheung Referrals: Ramila Ahumada PA [Primary Care Provider] - 4-7 days (We have notified your physician's clinic of the need for a follow-up appointment to be scheduled. If you have not heard from them within the next 2 business days, please call them directly. You may also reach out to our medical and health services manager at [phone] and she can assist you.) Discharge Diet: Regular Discharge Activity: Resume usual activity and Increase activity as tolerated Patient Instructions: Urinary Tract Infection in Women (DC), Opioid Safety Activity Restrictions/Additional Instructions: Continue ertapenem 1 g daily for next 7 days. Should have repeat CBC and CMP after completion of antibiotic course. Midline should be discontinued after completion of antibiotic course. Take amlodipine 10 mg daily for high blood pressure. Maintain a blood pressure diary by checking your blood pressure daily. Follow-up with a primary care provider within next 7 days for further adjustment of antihypertensives. You can take hydralazine 25 mg twice daily as needed for systolic blood pressure of more than 150 mmHg. Please maintain hydration with around 2 L of liquid daily. Discharge Attestations Time Spent in Discharge Care*: greater than 30 min Specific Discharge Activities: educating patient, educating and/or supporting family/caregiver, discussing with pcp/other providers, discussing with patient case manager/social workers/dc planners, documenting/other paperwork and evaluating patient/reviewing data Status at Discharge: Cognitive status at discharge: cognitively intact , Behavioral status at discharge: cooperative , Functional status at discharge: independent ambulation , Overall status at discharge: patient is back to [facility] Quality Metrics Clinical Quality Measures [ No reported AMI, CVA or VTE this stay] Coding Level of Care Code 39237 Total time (in minutes) for Discharge: 50 Diagnoses Urinary tract infection due to extended-spectrum beta lactamase (ESBL) producing Escherichia coli N39.0; B96.29; Z16.12 Acute hyponatremia E87.1 Nausea & vomiting R11.2 RAOUL (acute kidney injury) N17.9 Failure of outpatient treatment Z78.9
--- NOTE | 2023-04-25 10:30 | PC.NURSE ---
Referred for midline placement for IV antibiotics x 7 days. Risks and benefits discussed with patient and informed consent obtained. Pt is right hand dominant. Left arm assessed with left basilic vein 3.8 mm, straight, and apparent best choice for placement. Using sterile technique and MST, left basilic vein accessed x 1 stick. Mid-arm circumference measured 10 cm from left AC 28 cm. Trimmed length 10 cm terminating just below axilla. Line secured with stat-lock. Insertion site covered with Biopatch and TSM. Report given to bedside nurseSanjuana. Pt scheduled with GI infusions on 04/29/23 at 1230 for midline dressing change.
[2023-04-25] MEDS: ertapenem 1,000 MG in sodium chloride 0.9% (plus) 100 ML 200 MG IV (11:29)
[2023-04-25 12:46] VITALS: BP 179/93; PULSE 74; RESP 18; TEMP 36.5; O2SAT 97
[2023-04-25 16:00] VITALS: BP 179/93; PULSE 74; RESP 18; TEMP 36.5; O2SAT 97
[2023-04-30 00:23] LABS: Vitamin B12 902 pg/mL (232-1245)
== END 2023-04-25 13:20 | disposition home or self-care (01) ==
LOC: ER 15:54 → MEDSURG 18:11
PROVIDERS: Admitting Provider Student in an Organized Health Care Education/Training Program; Emergency Provider Internal Medicine; PCP Physician Assistant; Visit Provider Student in an Organized Health Care Education/Training Program
DX: N39.0 Urinary tract infection, site not specified (principal); B96.29 Other Escherichia coli [E. coli] as the cause of diseases classified elsewhere; Z16.12 Extended spectrum beta lactamase (ESBL) resistance; E87.1 Hypo-osmolality and hyponatremia; R11.2 Nausea with vomiting, unspecified; N17.9 Acute kidney failure, unspecified; Z78.9 Other specified health status; I10 Essential (primary) hypertension; Z86.73 Personal history of transient ischemic attack (TIA), and cerebral infarction without residual deficits
CPT/HCPCS: 36415; 36569; 36573; 74177; 80053; 80061; 81001; 82436; 82570; 82607; 82746; 83036; 83540; 83550; 83605; 83735; 84100; 84133; 84145; 84300; 84443; 85025; 87040; 87077; 87086; 87150; 87186; 87205; 94664; 96365; 96372; 99285; C1751; G0378; J0743; J1335; J1644; J7030; J7040; Q9967

== ENCOUNTER → 2023-04-29 12:29 | Day surgery (SDC) | payer MEDICARE, SELFPAY ==
[2023-04-29 12:35] VITALS: BP 161/103; PULSE 111; RESP 18; TEMP 36.1; O2SAT 98
== END ==
PROVIDERS: PCP Physician Assistant; Visit Provider Student in an Organized Health Care Education/Training Program
DX: N39.0 Urinary tract infection, site not specified (principal); B96.29 Other Escherichia coli [E. coli] as the cause of diseases classified elsewhere; Z16.12 Extended spectrum beta lactamase (ESBL) resistance
CPT/HCPCS: 99212

== ENCOUNTER → 2023-05-05 10:52 | Day surgery (SDC) | payer MEDICARE, SELFPAY ==
[2023-05-05 11:00] VITALS: BP 151/67; PULSE 96; RESP 18; TEMP 36.3; O2SAT 96
--- NOTE | 2023-05-05 11:10 | PC.NURSE ---
Midline removed. Cath tip intact. Pressure held until hemostasis obtained. Pt tolerated well.
[2023-05-05 11:25] LABS: Basophils # 0.1 10^3/uL (0.0-0.1); Eosinophils # 0.1 10^3/uL (0.0-0.8); Hematocrit 36.7 % (36-47); Lymphocytes # 2.3 10^3/uL (0.8-4.8); Lymphocytes % 30.4 %; Mean Corpuscular HGB Conc 33.8 g/dL (30-55); Mean Corpuscular Hemoglobin 31.2 pg (27-33); Mean Corpuscular Volume 92.2 fl (85-98); Mean Platelet Volume 8.5 fL (7.4-10.4); Monocytes # 0.5 10^3/uL (0.2-0.9); Monocytes % 6.4 %; Neutrophils # 4.67 10^3/uL (1.8-7.7); Neutrophils % 60.9 %; Nucleated Red Blood Cells % 0 %; Platelet Count 390 10^3/cmm (157-399); Red Blood Count 3.98 10^6/uL (3.85-5.65); Red Cell Distribution Width 12.8 % (12.1-15.1); White Blood Count 7.67 10^3/uL (3.29-11.43)
[2023-05-05 11:48] LABS: Alanine Aminotransferase 13 U/L (0-33); Albumin Level 4.4 g/dL (3.5-5.2); Alkaline Phosphatase 73 U/L (35-105); Anion Gap 12.3 (5-19); Aspartate Amino Transferase 17 U/L (0-32); Blood Urea Nitrogen 16 mg/dL (8-23); Calcium 9.3 mg/dL (8.5-10.5); Carbon Dioxide 27 mmol/L (22-29); Chloride 99 mmol/L (98-107); Creatinine Clr Calc Pharmacy 45.8325; Globulin 2.7 g/dL (1.3-4.6); Glucose 101 mg/dL (65-115); Osmolality Calculated 279 mOsm/kg (285-295); Potassium 4.3 mmol/L (3.5-5.1); Sodium 134 mmol/L (136-145); Total Bilirubin 0.4 mg/dL (0.15-1.2); Total Protein 7.1 g/dL (6.6-8.7)
== END ==
PROVIDERS: PCP Physician Assistant; Visit Provider Student in an Organized Health Care Education/Training Program
DX: N39.0 Urinary tract infection, site not specified (principal); Z16.12 Extended spectrum beta lactamase (ESBL) resistance
CPT/HCPCS: 36415; 80053; 85025

== ENCOUNTER 2023-05-13 04:59 | Emergency (ER) | payer MEDICARE, SELFPAY ==
[2023-05-13 05:05] VITALS: BP 124/77; PULSE 80; RESP 18; TEMP 36.4; O2SAT 94; BMI 25.6
--- NOTE | 2023-05-13 05:18 | USCV_ITS ---
Geeta Hudson Age: 83 Gender: F : 1940 Exam Date: 05/13/2023 05:29 Ordering Phys: Tucker Lacey DO Technologist: SOLE [place] [facility] [place]: painful RUE since IV in that arm for antibiotics x 2 weeks. No hx DVT per patient. HISTORY: painful RUE since IV in that arm for antibiotics x 2 weeks. No hx DVT per patient. PROCEDURES: Venous duplex imaging was performed in only the right upper extremity. The following venous structures were evaluated: internal jugular vein, subclavian vein, axillary vein, and brachial veins. In addition, the basilic vein, cephalic vein, radial vein, and ulnar vein. FINDINGS: The veins of the right upper extremity are readily compressible with normal venous flow dynamics including spontaneous flow, respiratory phasic variation and augmentation. CONCLUSIONS No right upper extremity DVT. Dr. Makeda Fernandez DO (Electronically Signed) Final Date: 13 May 2023 07:13 S
--- NOTE | 2023-05-13 05:20 | W.ED.GENADLT ---
Documented by User: Tucker Lacey DO 05/13/23 05:26 HPI - General Adult General: Chief complaint: General Medical Stated complaint: IV site pain Time Seen by Provider: 05/13/23 05:00 History of Present Illness: Patient presents to the ER with complaints of pain in her right upper extremity. Patient believes this pain starts in her elbow region where they put an IV and then goes all the way down to her fingertips. Patient was recently in the hospital for several days and had several IVs and IVs attempted in this region. Patient and son are persistent they would like an ultrasound to rule out a blood clot. Patient did take a hydrocodone prior to arrival and said that did help the pain. Review of Systems General: Reports: 10 or more systems reviewed and unremarkable except in HPI and below PFSH ED PFSH: Medical History Diastolic dysfunction without heart failure History of CVA (cerebrovascular accident) Hypertension Urinary tract infection due to extended-spectrum beta lactamase (ESBL) producing Escherichia coli Surgical History History of back surgery Family History Father Stroke Social History Smoking and tobacco/nicotine status: never used tobacco/nicotine Alcohol intake: never Substance/Drug Use: never Physical Exam Const: COMMON NORMALS: no acute distress, average body habitus, patient oriented x3, no limitations, healthy appearing, alert and well nourished Neck/C-Spine: COMMON NORMALS: no JVD Chest: COMMONS NORMALS: normal inspection of the chest and normal palpation of entire chest wall Resp: COMMON NORMALS: normal respiratory effort, No retractions, No use of accessory muscles and clear to auscultation bilaterally AUSCULTATION: clear to auscultation bilaterally Cardio: COMMON NORMALS: no JVD, regular rate, regular rhythm, S1 normal heart sound present, S2 normal heart sound present, No gallops present (Cardio), No clicks present (Cardio), No murmurs present (Cardio) and No rub (Cardio) RATE: regular rate RHYTHM: regular rhythm HEART SOUNDS: S1 normal heart sound present and S2 normal heart sound present GI: COMMON NORMALS: Normal to inspection, nondistended, normoactive bowel sounds present, Soft to palpation, non-tender, No hepatosplenomegaly present and no masses PALPATION: Yes Soft to palpation and Yes No hepatosplenomegaly present Extremity: NARRATIVE EXTREMITY EXAM: No obvious mass, phlebitis, red streaking or pain with palpation over the Ulnar nerve at the elbow Neuro: COMMON NORMALS: patient oriented x3 SENSORIUM/ORIENTATION: Yes alert Course Vital Signs: Vital signs: Vital Signs Temperature 97.6 F 05/13/23 06:53 Pulse Rate 69 05/13/23 06:53 Respiratory Rate 16 05/13/23 06:53 Blood Pressure 122/60 05/13/23 06:53 Pulse Oximetry 96 05/13/23 06:53 Oxygen Delivery Me thod Room Air 05/13/23 05:05 MDM - General Adult Differential Diagnosis superficial thrombophlebitis Medical Records I reviewed the patient's medical records. Lab Data I reviewed the patient's lab results. All radiology interpretation(s) finalized by discharge Discharge Plan Discharge Patient Disposition: Home Clinical Impression: Thrombophlebitis of arm, right Condition: Stable Prescriptions: No Action clopidogrel 75 mg tablet 75 mg PO QAM sulfamethoxazole-trimethoprim [Bactrim DS] 800-160 mg tablet 1 tab PO BID PRN (Reason: UTI) 5 Days Qty: 10 5RF cyanocobalamin (vitamin B-12) [Vitamin B-12] 1,000 mcg Tablet 1,000 mcg PO QAM acetaminophen 500 mg Tablet 1,000 mg PO Q6H PRN (Reason: Pain) diphenhydramine-acetaminophen [Tylenol PM Extra Strength] 25-500 mg Tablet 0.5 tab PO BEDTIME loratadine [Claritin] 10 mg Tablet 10 mg PO DAILY PRN (Reason: Allergy Symptoms) amlodipine 10 mg tablet 10 mg PO QAM hydralazine 25 mg tablet 25 mg PO BID PRN (Reason: sbp more than 150 mmhg) Qty: 14 0RF Discharge Orders: Discharge ED (Routine); Ordered 05/13/23 Ordered By: Graham Cruz Referrals: Ramila Ahumada PA [Primary Care Provider] - Discharge Diet: Usual diet Discharge Activity: Increase activity as tolerated Patient Instructions: Superficial Thrombophlebitis (ED), Opioid Safety, Pain Management Sign Out Sign Out Data: Patient Sign Out occurred on 05/13/23 at 05:55. Patient's care was discussed, and care was transferred from to Graham Cruz DO. Coding Level of Care Code ED Motor Installer for Chg Fwd Documented by User: Graham Cruz DO 05/13/23 07:10 HPI - General Adult General: Chief complaint: General Medical Stated complaint: IV site pain Time Seen by Provider: 05/13/23 05:00 [facility] ED PFSH: Medical History Diastolic dysfunction without heart failure History of CVA (cerebrovascular accident) Hypertension Urinary tract infection due to extended-spectrum beta lactamase (ESBL) producing Escherichia coli Surgical History History of back surgery Family History Father Stroke Social History Smoking and tobacco/nicotine status: never used tobacco/nicotine Alcohol intake: never Substance/Drug Use: never Course Vital Signs: Vital signs: Vital Signs Temperature 97.6 F 05/13/23 06:53 Pulse Rate 69 05/13/23 06:53 Respiratory Rate 16 05/13/23 06:53 Blood Pressure 122/60 05/13/23 06:53 Pulse Oximetry 96 05/13/23 06:53 Oxygen Delivery Me thod Room Air 05/13/23 05:05 MDM - General Adult Medical Decision Making Care assumed at change of shift from Dr. Lacey. Ultrasound shows no thrombosis. She does have some mild erythema and tenderness in the antecubital fossa of the right arm. Moderate superficial thrombophlebitis. Heat anti-inflammatories and follow-up with primary care as needed Discharge Plan Discharge Patient Disposition: Home Clinical Impression: Thrombophlebitis of arm, right Condition: Stable Prescriptions: No Action clopidogrel 75 mg tablet 75 mg PO QAM sulfamethoxazole-trimethoprim [Bactrim DS] 800-160 mg tablet 1 tab PO BID PRN (Reason: UTI) 5 Days Qty: 10 5RF cyanocobalamin (vitamin B-12) [Vitamin B-12] 1,000 mcg Tablet 1,000 mcg PO QAM acetaminophen 500 mg Tablet 1,000 mg PO Q6H PRN (Reason: Pain) diphenhydramine-acetaminophen [Tylenol PM Extra Strength] 25-500 mg Tablet 0.5 tab PO BEDTIME loratadine [Claritin] 10 mg Tablet 10 mg PO DAILY PRN (Reason: Allergy Symptoms) amlodipine 10 mg tablet 10 mg PO QAM hydralazine 25 mg tablet 25 mg PO BID PRN (Reason: sbp more than 150 mmhg) Qty: 14 0RF Discharge Orders: Discharge ED (Routine); Ordered 05/13/23 Ordered By: Graham Cruz Referrals: Ramila Ahumada PA [Primary Care Provider] - Discharge Diet: Usual diet Discharge Activity: Increase activity as tolerated Patient Instructions: Superficial Thrombophlebitis (ED), Opioid Safety, Pain Management Sign Out Sign Out Data: Patient Sign Out occurred on 05/13/23 at 05:55. Patient's care was discussed, and care was transferred from to Graham Cruz DO. Coding Level of Care Code ED Motor Installer for Kevin Berrios
[2023-05-13 06:06] VITALS: BP 122/60; PULSE 69; RESP 16; O2SAT 96
[2023-05-13 06:53] VITALS: BP 122/60; PULSE 69; RESP 16; TEMP 36.4; O2SAT 96
[2023-05-13 07:11] VITALS: BP 122/57; PULSE 81; RESP 17; O2SAT 95
== END 2023-05-13 07:12 | disposition home or self-care (01) ==
PROVIDERS: Emergency Provider Family Medicine; PCP Physician Assistant
DX: I80.8 Phlebitis and thrombophlebitis of other sites (principal); Z79.02 Long term (current) use of antithrombotics/antiplatelets; Z86.73 Personal history of transient ischemic attack (TIA), and cerebral infarction without residual deficits; I10 Essential (primary) hypertension
CPT/HCPCS: 93971; 99284

== ENCOUNTER → 2025-01-24 18:20 | Outpatient (BNVA) | payer MEDICARE, SELFPAY | PROVIDERS: PCP Physician Assistant; Visit Provider Family Medicine | DX: R39.9 Unspecified symptoms and signs involving the genitourinary system (principal) | CPT/HCPCS: 81000 ==

== ENCOUNTER 2025-01-25 11:19 | Emergency (ER) | payer MEDICARE, SELFPAY ==
--- OUTSIDE RECORDS SUMMARY | 2023-10-16 12:00 | XMS_ITS ---
Author Organization [facility] Address [address] [place] [address] Care Team Providers Care Pearl Diver Name Role Phone Ramila Ahumada Primary Care Provider UnavailBONILLA Garcia Unavailable [phone] MARK ARIAS Unavailable [phone] REASON FOR VISIT 2 mo f/u - rec uti/incomp emptying Encounters Encounter Location Date Provider Diagnosis [facility] [address] [place] [address] 10/16/2023 MARK ARIAS Plan Of Treatment No Information Progress Notes * TRISTANIvanaEdwinOB: [birth year] (84 yo F)Acc No.[id number]:10/16/2023 Progress Notes Patient: Daniel SWANNGeeta BARNES Provider: Carli Arias APRN :1940 A ge:83 Y S ex:Female Date:10/16/2023 Address:[address] [place] [address], [id number] Pcp:Ramila Ahumada Subjective: * Chief Complaints: * 1 . 2 mo f/u - rec uti/incomp emptying. * Medical History: Objective: * Vitals: Assessment: Plan: * Treatment: * Billing Information: * Visit Code: * Procedure Codes: * Electronic signature of COURTNEY ARIAS APRN on 01/25/2025 at 11:26 AM CDT Sign off status: Pending * Provider: Carli Arias APRN Date: 0 10/16/2023 Generated for Olga terry/Mirna/Lorne on: 0 01/25/2025 11:26 AM CDT
[2025-01-25 11:21] VITALS: BP 138/69; PULSE 101; TEMP 36.7; O2SAT 95
--- OUTSIDE RECORDS SUMMARY | 2025-01-25 11:26 | XMS_ITS | Patient Health Record ---
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 Pt has a PICC line. PICC 04/30/2023 Not-Taking Clopidogrel Bisulfate 75 MG 1 tablet Orally Once a day 04/30/2023 Active amLODIPine Besylate 10 MG 1 tablet Orall y Once a day 04/30/2023 Active Lisinopril-hydroCHLOROthi azide 20-12.5 MG 1 tablet Orally Once a day 04/30/2023 Not-Taking Social History Tobacco Use: Social History Observation Description Date Details (start date - stop date) Never Smoker NA - NA Tobacco Use/Smoking Question Answer Notes Tobacco use: nonsmoker Problems Problem Type SNOMED Code ICD Code Onset Dates Problem Status W/U Status Risk Notes Problem Mixed incontinence (986608305) Mixed incontinence (N39.46) Active confirmed Problem Urinary tract infectious disease (87901256) UTI (urinary tract infection) (N39.0) Active confirmed Problem Midline cystocele (953070348) Bladder prolapse, female, 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) Active confirmed Problem History of sepsis (090467129725128) History of sepsis (Z86.19) Active confirmed Problem Healed pyelonephritis (disorder) (071795449) History of pyelonephritis (Z87.448) Active confirmed Problem Cystocele (918666676) Cystocele (N81.10) Active confirmed Problem Recurrent urinary tract infection (437420720) Recurrent UTI (N39.0) Active confirmed Problem Incomplete emptying of bladder (899717827) Incomplete emptying of bladder (R33.9) Active confirmed Problem Overactive urinary bladder (disorder) (521214629) OAB (overactive bladder) (N32.81) Active confirmed Plan Of Treatment Pending Test Test Name Order Date Urinalysis, Routine 07/23/2023 Bladder Scan 07/23/2023 Insurance Providers Payer Name Payer Address Payer Phone Subscriber Number Group Number Insured Name Patient Relationship to Insured Coverage Start Date Coverage End Date [employer] Medicare Replacement [address] [address] [place], [place] [id number] Monica loco Geeta Self - patient is the insured Medical (General) History Medical History History ICD Code UTIs hypertension Stroke Surgical History Surgery Date(Month/Year) tubal ligation repair from childbirth back surgery 11/18/22 Hospitalization History Reason Date(Month/Year) kidney infection 03/2023
--- OUTSIDE RECORDS SUMMARY | 2025-01-25 11:26 | XMS_ITS | Patient Health Record ---
Author Organization [facility] Address [address] [place] [address] Care Team Providers Care Community Organization Aide Name Role Phone Ramila Ureña Primary Care Provider Walter Dugan Unavailable [phone] Reason For Referral No Information Medications Medication SIG (Take, Route, Frequency, Duration) Notes Start Date End Date Status Vitamin B12 Active amLODIPine Besylate Active Lisinopril-hydroCHLOROthiaz breanna Active Labetalol HCl Active Clopidogrel Bisulfate Active Problems Problem Type SNOMED Code ICD Code Onset Dates Problem Status W/U Status Risk Notes Problem 763768933316392 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) Active confirmed Problem Acquired spondylolisthesis (777652748) Anterolisthesis of lumbar spine (M43.16) Active confirmed Plan Of Treatment Pending Test Test Name Order Date Prothrombin Time 93170 11/06/2022 ABORh 09780, 42131 11/06/2022 ABORh 77174, 35552 11/18/2022 Antibody Screen 74838 11/18/2022 Antibody Screen 47207 11/06/2022 Basic Metabolic Panel (BMP) 82342 2022 Basic Metabolic Panel (BMP) 76059 2022 CBC w\ Auto Diff 38590 11/06/2022 Partial Thromboplastin Time 63605 2022 CBC Reflex Man Diff 06907, 28242 023 Chest PA/Lat-21910 11/12/2022 Chest PA/Lat-37270 11/06/2022 Lumbosacral Spine AP/Lat-61333 3 Lumbosacral Spine AP/Lat-82784 3 XR Outside CD 04/16/2023 Electrocardiogram 12 Lead Tracing-34978 11/06/2022 WBC Auto Diff--31197 11/18/2022 BB ABORH-11577,14329 11/18/2022 zzzFluoro >1h4 11/18/2022 zzzMRI Outside CD 10/25/2022 Insurance Providers Payer Name Payer Address Payer Phone Subscriber Number Group Number Insured Name Patient Relationship to Insured Coverage Start Date Coverage End Date [employer] Medicare Replacement [address] [address] [place] [address] [id number] Geeta Cavazos Self - patient is the insured Medical (General) History Medical History History ICD Code Measles Mumps Chicken Pox Pneumonia Bladder Infections Back Trouble HBP Stroke Surgical History Surgery Date(Month/Year) L4-5 TLIF 11/2022 Repair from Child 1974 Tubal Ligation 1974 Hospitalization History Reason Date(Month/Year) Stroke 2004
[2025-01-25 13:24] LABS: Glucose Urine UA Negative (Normal); Nitrate Urine Positive (Negative); Specific Gravity, Urine 1.011 (1.005-1.030)
[2025-01-25 13:27] LABS: Add Urine Microscopic? YES
--- NOTE | 2025-01-25 13:31 | ED_ITS ---
HPI - Female Genitourinary 2 General: Chief complaint: Urogenital-Female Stated complaint: dizzy / nausea Time Seen by Provider: 01/25/25 13:27 Source: patient Mode of arrival: ambulatory Limitations: no limitations History of Present Illness: 84-year-old female states she was diagno sed with a UTI yesterday was prescribed Bactrim states she has had a UTI back in 2022 and was septic from it. Send she had some general malaise and nausea and was concerned of being septic and she denies any fever she has had no vomiting denies any pain blood pressure here has been normal. Associated symptoms: Deny abdominal pain, headache(s) or nausea Related Data Home Medications ?Medication ?Instructions ?Recorded ?Confirmed clopidogrel 75 mg tablet 75 mg PO QAM 04/30/22 amlodipine 10 mg tablet 10 mg PO QAM 04/23/23 diphenhydramine 25 0.5 tab PO BEDTIME 04/23/23 01/24/25 mg-acetaminophen 500 mg tablet (Tylenol PM Extra Strength) loratadine 10 mg tablet (Claritin) 10 mg PO DAILY PRN Allergy Symptoms 04/23/23 01/24/25 lisinopril 20 1 tab PO DAILY 01/24/2502/11 mg-hydrochlorothiazide 12.5 mg tablet nitrofurantoin 100 mg capsule 100 mg PO ONCE 01/24/25 01/24/25 Previous Rx's ?Medication ?Instructions ?Recorded sulfamethoxazole 800 1 tab PO BID #14 tabs mg-trimethoprim 160 mg tablet (Bactrim DS) Allergies Allergy/AdvReac Type Severity Reaction Status Date / Time No Known Allergies Allergy Verified 01/25/25 11:27 Review of Systems 2 Const: Reports: fatigue and malaise; Denies: fever(s), chills, body aches or change in appetite ENMT: Denies: throat pain or dental pain Card: Denies: chest pain Resp: Denies: dyspnea GI: Denies: abdominal pain, nausea, vomiting or diarrhea : Reports: dysuria Musc: Denies: neck pain or back pain Skin/Breast: Denies: rash Neuro: Denies: headache(s) PFSH ED 2 PFSH: Medical History Diastolic dysfunction without heart failure Urinary tract infection due to extended-spectrum beta lactamase (ESBL) producing Escherichia coli History of CVA (cerebrovascular accident) Hypertension Surgical History History of back surgery Family History Father Stroke Social History Smoking and tobacco/nicotine status: never used tobacco/nicotine Alcohol intake: never Substance/Drug Use: never Physical Exam 2 Const: COMMON NORMALS: patient oriented x3 HENMT: COMMON NORMALS: normocephalic and atraumatic HEAD & SCALP: n ormocephalic and atraumatic Eye: COMMON NORMALS: Equal, round and reactive pupils present and EOMs intact bilaterally PUPIL: Yes Equal, round and reactive pupils present Neck/C-Spine: COMMON NORMALS: full ROM and supple Chest: COMMONS NORMALS: normal inspection of the chest and normal palpation of entire chest wall Resp: COMMON NORMALS: normal respiratory effort, No retractions, No use of accessory muscles and clear to auscultation bilaterally AUSCULTATION: clear to auscultation bilaterally Cardio: COMMON NORMALS: regular rate, regular rhythm and No murmurs present (Cardio) RATE: regular rate RHYTHM: regular rhythm GI: COMMON NORMALS: Normal to inspection, nondistended, normoactive bowel sounds present, Soft to palpation, non-tender and no masses PALPATION: Yes Soft to palpation Extremity: COMMON NORMALS: normal to inspection and full ROM Neuro: COMMON NORMALS: patient oriented x3, moves all extremities and no focal motor deficits Psych: COMMON NORMALS: mental status grossly normal, Normal thought process present and cooperative THOUGHT PROCESS: Normal thought process present Skin: COMMON NORMALS: no rashes or lesions noted and no wounds GENERAL SKIN EXAM: no rashes or lesions noted Course 2 Vital Signs: Vital signs: Vital Signs Temperature 98.0 F 01/25/25 11:21 Pulse Rate 101 H 01/25/25 11:21 Blood Pressure 138/69 01/25/25 11:21 Pulse Oximetry 95 01/25/25 11:21 Oxygen Delivery Me thod Room Air 01/25/25 11:21 MDM - Female Medical Decision Making Patient presents here with acute cystitis she has no signs of sepsis here white count is normal blood pressure has been normal no abdominal pain will give her dose IV antibiotics she stable for discharge continue her oral antibiotics return if worsening. Medical Records I reviewed the patient's medical records. Lab Data I reviewed the patient's lab results. 01/25/25 13:28 01/25/25 13:28 Laboratory Results WBC 9.05 10^3/uL (3.29-11.43) 01/25/25 13:28 RBC 4.70 10^6/uL (3.85-5.65) 01/25/25 13:28 Hgb 14.60 g/dL (11.27-16.99) 01/25/25 13:28 Hct 41.8 % (36-47) 01/25/25 13:28 MCV 88.9 fl (85-98) 01/25/25 13:28 MCH 31.1 pg (27-33) 01/25/25 13:28 MCHC 34.9 g/dL (30-55) 01/25/25 13:28 RDW 11.9 % (12.1-15.1) L 01/25/25 13:28 Plt Count 298 10^3/cmm (157-399) 01/25/25 13:28 MPV 9.0 fL (7.4-10.4) 01/25/25 13:28 Neut % (Auto) 63.1 % 01/25/25 13:28 Lymph % (Auto) 25.4 % 01/25/25 13:28 [place] % (Auto) 8.8 % 01/25/25 13:28 Eos % (Auto) 1.5 % 01/25/25 13:28 Baso % (Auto) 0.9 % 01/25/25 13:28 Neut # (Auto) 5.70 10^3/uL (1.8-7.7) 01/25/25 13:28 Lymph # (Auto) 2.3 10^3/uL (0.8-4.8) 01/25/25 13:28 [place] # (Auto) 0.8 10^3/uL (0.2-0.9) 01/25/25 13:28 Eos # (Auto) 0.1 10^3/uL (0.0-0.8) 01/25/25 13:28 Baso # (Auto) 0.1 10^3/uL (0.0-0.1) 01/25/25 13:28 Nucleated RBC % (auto) 0 % 01/25/25 13:28 Nucleated RBCs # 0.0 /100WBC 01/25/25 13:28 Sodium 128 mmol/L (136-145) L 01/25/25 13:28 Potassium 3.5 mmol/L (3.5-5.1) 01/25/25 13:28 Chloride 88 mmol/L (98-107) L 01/25/25 13:28 Carbon Dioxide 23 mmol/L (22-29) 01/25/25 13:28 Anion Gap 20.5 (5-19) H 01/25/25 13:28 BUN 14 mg/dL (8-23) 01/25/25 13:28 Creatinine 0.9 mg/dL (0.5-0.9) 01/25/25 13:28 GFR Calculation Not Reportable 01/25/25 13:28 Glucose 121 mg/dL (65-115) H 01/25/25 13:28 Calculated Osmolality 268 mOsm/kg (285-295) L 01/25/25 13:28 Calcium 10.0 mg/dL (8.5-10.5) 01/25/25 13:28 Total Bilirubin 0.3 mg/dL (0.15-1.2) 01/25/25 13:28 AST 20 U/L (0-32) 01/25/25 13:28 ALT 11 U/L (0-33) 01/25/25 13:28 Alkaline Phosphatase 86 U/L (35-105) 01/25/25 13:28 Total Protein 8.6 g/dL (6.6-8.7) 01/25/25 13:28 Albumin 4.9 g/dL (3.5-5.2) 01/25/25 13:28 Globulin 3.7 g/dL (1.3-4.6) 01/25/25 13:28 Urine Color Yellow (Yellow) 01/25/25 13:10 Urine Appearance Clear (CLEAR) 01/25/25 13:10 Urine pH 7.0 (5-7) 01/25/25 13:10 Ur Specific [place] 1.011 (1.005-1.030) 01/25/25 13:10 Urine Protein Negative (Negative) 01/25/25 13:10 Urine Glucose (UA) Negative (Normal) 01/25/25 13:10 Urine Ketones Negative (Negative) 01/25/25 13:10 Urine Blood 1+ (Negative) A 01/25/25 13:10 Urine Nitrate Positive (Negative) A 01/25/25 13:10 Urine Bilirubin Negative (Negative) 01/25/25 13:10 Urine Urobilinogen 0.2 mg/dL (Negative) 01/25/25 13:10 Ur Leukocyte Esterase 1+ (Negative) A 01/25/25 13:10 Urine RBC 6-10 /hpf (0-2) 01/25/25 13:10 Urine WBC 21-50 /hpf (0-5) H 01/25/25 13:10 Ur Squamous Epith Cells 0-5 /hpf (0-5) 01/25/25 13:10 Amorphous Sediment Not Reportable 01/25/25 13:10 Urine Bacteria 4+ /hpf (NONE) H 01/25/25 13:10 Hyaline Casts 0.40 /lpf 01/25/25 13:10 All radiology interpretation(s) finalized by discharge Discharge Plan Discharge Patient Disposition: Home Clinical Impression: Acute cystitis Condition: Stable Prescriptions: No Action lisinopril-hydrochlorothiazide 20-12.5 mg tablet 1 tab PO DAILY nitrofurantoin 100 mg capsule 100 mg PO ONCE Rx Instructions: must administer with a meal/food sulfamethoxazole-trimethoprim [Bactrim DS] 800-160 mg tablet 1 tab PO BID Qty: 14 0RF clopidogrel 75 mg tablet 75 mg PO QAM diphenhydramine-acetaminophen [Tylenol PM Extra Strength] 25-500 mg Tablet 0.5 tab PO BEDTIME loratadine [Claritin] 10 mg Tablet 10 mg PO DAILY PRN (Reason: Allergy Symptoms) amlodipine 10 mg tablet 10 mg PO QAM Discharge Orders: Discharge ED (Routine); Ordered 01/25/25 Ordered By: Anurag Araujo Referrals: Ramila Ahumada PA [Primary Care Provider, [facility] [employer] Development Manager] Discharge Diet: Advance as tolerated Discharge Activity: Resume usual activity Patient Instructions: Urinary Tract Infection in Women (ED) Print Language: Syriac Coding Level of Care Code ED Senior Director Marketing for [facility]
[2025-01-25 13:38] LABS: Hematocrit 41.8 % (36-47); Hemoglobin 14.60 g/dL (11.27-16.99); Mean Corpuscular HGB Conc 34.9 g/dL (30-55); Mean Corpuscular Hemoglobin 31.1 pg (27-33); Mean Corpuscular Volume 88.9 fl (85-98); Nucleated Red Blood Cells % 0 %; Platelet Count 298 10^3/cmm (157-399); Red Blood Count 4.70 10^6/uL (3.85-5.65); White Blood Count 9.05 10^3/uL (3.29-11.43)
[2025-01-25 13:55] LABS: Alanine Aminotransferase 11 U/L (0-33); Albumin Level 4.9 g/dL (3.5-5.2); Alkaline Phosphatase 86 U/L (35-105); Anion Gap 20.5 (5-19); Aspartate Amino Transferase 20 U/L (0-32); Blood Urea Nitrogen 14 mg/dL (8-23); Calcium 10.0 mg/dL (8.5-10.5); Carbon Dioxide 23 mmol/L (22-29); Chloride 88 mmol/L (98-107); Creatinine Clr Calc Pharmacy 41.3215; Globulin 3.7 g/dL (1.3-4.6); Glucose 121 mg/dL (65-115); Osmolality Calculated 268 mOsm/kg (285-295); Potassium 3.5 mmol/L (3.5-5.1); Sodium 128 mmol/L (136-145); Total Protein 8.6 g/dL (6.6-8.7)
[2025-01-25 14:00] VITALS: BP 122/63; PULSE 83; O2SAT 93
[2025-01-25] MEDS: ondansetron 2 mg/ML SDV 2 mL 4 MG IVP (14:03)
[2025-01-25] MEDS: piperacillin-tazobactam 3.375 GM in sodium chloride 0.9% (plus) 50 ML IV (14:03)
--- NOTE | 2025-01-25 14:25 | PC.NURSE ---
THIS NURSE WENT TO FLUSH PT LINE AFTER ANTIBIOTIC ADMINISTRATION. UPON FLUSHING, IV APPEARED TO BE INFILTRATED. THIS NURSE REMOVED IV CATHETER AND APPLIED PRESSURE DRESSING. DR. CONCEPCION NOTIFIED OF IV INFILTRATION. NO NEW ORDERS AT THIS TIME.
[2025-01-25 14:34] VITALS: BP 115/63; PULSE 73; O2SAT 93
== END 2025-01-25 14:35 | disposition home or self-care (01) ==
PROVIDERS: Emergency Provider Emergency Medicine; PCP Physician Assistant
DX: N30.00 Acute cystitis without hematuria (principal); Z79.02 Long term (current) use of antithrombotics/antiplatelets; Z86.73 Personal history of transient ischemic attack (TIA), and cerebral infarction without residual deficits; I11.0 Hypertensive heart disease with heart failure; I50.30 Unspecified diastolic (congestive) heart failure
CPT/HCPCS: 36415; 80053; 81001; 85025; 87077; 87086; 87186; 96365; 96375; 99284; J2405; J2543

== ENCOUNTER → 2025-06-14 13:11 | Outpatient (BNVA) | payer MEDICARE, SELFPAY | PROVIDERS: PCP Physician Assistant; Visit Provider Dermatology | DX: C44.329 Squamous cell carcinoma of skin of other parts of face (principal) | CPT/HCPCS: 14040; 17311 ==